=== PATIENT | female | born 1935 | race Caucasian/White ===

== ENCOUNTER 2025-05-09 20:34 | Inpatient (IN) | payer OTHER, MEDICAID ==
[~2025-05-09] VITALS: Ht 160 cm; Wt 52.4 kg
[~2025-05-09 20:34] MED LIST: AMLO1TAB23 PO; ARIP5TAB PO; DESV1TAB PO; GABA-1250 PO; HYDR-4798 PO; PANT40T PO
--- NOTE | 2025-05-09 20:59 | ED.PDOC ---
SOB-HPI HPI Comments HPI: This is 89 year old female BIBA presenting to the ED with chief complaint of SOB. EMS reports patient is coming from [facility] for SOB since yesterday. EMS relays that the patient was 75% on RA, however, when placed on non-rebreather mask she went up to 99% O2 saturation. EMS states patient was also given 500mL of IVF en route due to HR being about 123. Patient states she is also experiencing associated abdominal pain and back pain, but her SOB is much more improved with the O2. Patient denies any chest pain, fever, chills, cough, or syncope. Past Medical History: HTN Past Surgical History: Denies Social History: Denies smoking, ETOH, or drug use. Medications: Reviewed Allergies: NKDA SHALLENBERGER: HYPOXIC 70. TACHY, ON NRM NOW. FEELS BETTER. KIASER. HTN, COUGH HPI: Poor Historian. Patient feels better on the non-rebreather mask and states some improvement since EMS picked her up. REVIEW OF SYSTEMS: CONSTITUTIONAL: Denies acute: fever, diaphoresis, chills, HEAD: Denies acute: headache, photophobia Eyes: Denies acute: Double vision, vision loss, eye pain, eye discharge. EARS: Denies acute: tinnitus, hearing loss, ear discharge, ear pain, THROAT: Denies acute: sore throat, swelling, difficulty swallowing , pain with swallowing, change in voice. NECK: Denies acute: neck pain, neck swelling, stiff neck. HEART: Denies acute : chest pain, palpitations, LUNGS: Denies acute: wheezing, hemoptysis ABDOMEN: Denies acute: abdominal pain, Nausea, Vomiting, diarrhea, melena , hematemesis, hematochezia SKIN: Denies acute: rash, redness, lesions, itchiness. EXTREMITIES: Denies acute: calf pain, numbness, tingling, weakness, denies pain in extremity. Denies acute: Low back pain. Neuro: Denies acute: focal neurological deficit, motor or sensory focal neurological deficit, tremors, seizure like activity, confusion, dizziness, change in mental status, loss of bowel or bladder function, cauda equina like symptoms. : Denies acute: dysuria, hematuria, flank pain, increase in urinary frequency. PSYCH: Denies acute: hallucination, suicidal ideation, homicidal ideation. FEMALE: Denies acute: abnormal vaginal bleeding, foul odor, unusual discharge. PHYSICAL EXAM: General: ----moderate----acute distress, awake and alert. Head: normocephalic, atraumatic. No raccoon's eyes, no amin sign. Neck: supple, trachea is midline, no swelling. Throat: Normal phonation. Eyes:, no erythema, no purulent discharge, no proptosis, no icterus. Heart: regular tachycardic, no significant murmur appreciated. Lungs: Mild respiratory distress, Able to speak in full sentences. Patient is on a non-rebreather mask. No wheezing, no rhonchi, no crackles. No stridors Clear to auscultation bilaterally. Abdomen: non tender to palpation, non distended, soft, no guarding, no rebound, + bowel sounds. Neuro: Awake, Alert, oriented to name, self, situation, follows commands GCS=15. Speech is normal. Skin: no petechia, no purpura, no cyanosis, slightly-pale, not jaundice. Lower extremities: --trace bilateral - Pitting edema no deformity, no focal swelling, no calf TTP. Makes eye contact. moves all four extremities. Face: no apparent facial droop. ED COURSE: DISCLAIMER: This medical document was created using an electronic medical record system with voice recognition software and computerized dictation system. Although this document has been carefully reviewed, there might still be some phonetic and typographical errors. Occasional wrong-word or "sound-alike" substitutions may have occurred due to the inherent limitations of voice recognition software. These areas are purely typographical due to imperfections of the software programs and do not reflect any compromise in the patient's medical care. Please read the chart carefully and recognize, using context, where these substitutions have occurred. Chief Complaint: Shortness of Breath Time Seen by MD: 20:55 Reviewed notes: Medications, Allergies Information Source: Patient, Emergency Med Personnel Mode of Arrival: EMS Was a procedure done? Was a procedure done?: No Differential Dx Differential Diagnosis: Other (DDx include ACS, unstable angina, anxiety, PE, pneumothroax, neoplasm, cardiac ischemia, COPD, asthma, CHF, pleural effusion, tobacco abuse, pneumonia, hypoxia, hypercapnia, anemia., infection/sepsis., pulmonary edema. Asthma, Cardiac tamponade, infection.) X-Ray, Labs, Meds, VS Vital Signs Date Time Temp Pulse Resp B/P (MAP) Pulse Ox O2 Delivery O2 Flow Rate FiO2 05/09/25 22:05 20 97 Non-Rebreather 15 N/A 05/09/25 22:00 119 16 120/62 (81) 96 05/09/25 21:12 122 20 99 Non-Rebreather 15 N/A 05/09/25 21:12 98.2 122 21 112/60 (77) 99 98.2 05/09/25 20:48 99 Non-Rebreather 15 N/A 05/09/25 20:41 98.2 125 22 148/75 99 98.2 05/09/25 20:38 120 Lab Test 05/09/25 22:55 05/09/25 21:16 Range/Units Troponin I High Sensitivity 96 *H 85 *H </=34 ng/L White Blood Count 12.3 H 4.4-10.8 10^3/uL Red Blood Count 3.77 L 4.0-5.20 10^6/uL Hemoglobin 11.0 L 12.2-16.2 g/dL Hematocrit 33.8 L 36.0-46.0 % Mean Corpuscular Volume 89.5 80.0-100.0 fL Mean Corpuscular Hemoglobin 29.2 28.0-32.0 pg Mean Corpuscular Hemoglobin Concent 32.6 32.0-36.0 g/dL Red Cell Distribution Width 15.3 H 11.8-14.3 % Platelet Count 513 H 140-450 10^3/uL Mean Platelet Volume 6.7 L 6.9-10.8 fL Neutrophils (%) (Auto) 81.8 H 37.0-80.0 % Lymphocytes (%) (Auto) 11.6 10.0-50.0 % Monocytes (%) (Auto) 4.9 0.0-12.0 % Eosinophils (%) (Auto) 1.2 0.0-7.0 % Basophils (%) (Auto) 0.5 0.0-2.0 % Neutrophils # (Auto) 10.0 H 1.6-8.6 10 ^3/uL Lymphocytes # (Auto) 1.4 0.4-5.4 10 ^3/uL Monocytes # (Auto) 0.6 0-1.3 10 ^3/uL Eosinophils # (Auto) 0.1 0-0.8 10 ^3/uL Basophils # (Auto) 0.1 0-0.2 10 ^3/uL Nucleated Red Blood Cells 0.1 % D-Dimer, Quantitative 3.03 H 0.0-0.49 mg/L FEU Sodium Level 140 136-145 mmol/L Potassium Level 3.5 3.5-5.1 mmol/L Chloride Level 105 98-107 mmol/L Carbon Dioxide Level 22 20-31 mmol/L Anion Gap 13 5-15 Blood Urea Nitrogen 17 9-23 mg/dL Creatinine 0.86 0.550-1.02 mg/dL Glomerular Filtration Rate Calc 65 >90 mL/min BUN/Creatinine Ratio 19.8 10.0-20.0 Serum Glucose 101 74-106 mg/dL Lactic Acid Level 2.1 *H 0.4-2.0 mmol/L Calcium Level 8.6 L 8.7-10.4 mg/dL Magnesium Level 1.8 1.6-2.6 mg/dL Total Bilirubin 0.3 0.2-1.0 mg/dL Aspartate Amino Transferase (AST) 39 13-40 U/L Alanine Aminotransferase (ALT) 14 7-40 U/L Alkaline Phosphatase 168 H 46-116 U/L B-Type Natriuretic Peptide 358.52 0-100 pg/mL Total Protein 6.9 5.7-8.2 g/dL Albumin 3.7 3.2-4.8 g/dL Current Medications Medications (Trade) Dose Ordered Sig/Ely Route Start Time Stop Time Status Last Admin Albuterol (Ventolin Medneb) 2.5 mg ONCE ONCE NEB 05/09/25 21:00 05/09/25 21:01 DC 05/09/25 22:05 Ipratropium [place] (Atrovent Medneb) 1 mg ONCE ONCE NEB 05/09/25 21:00 05/09/25 21:01 DC 05/09/25 22:05 Ceftriaxone Sodium 50 ml @ 100 mls/hr ONCE ONCE IV 05/09/25 22:15 05/09/25 22:44 DC 12/8/25 22:19 Time of 1ST Reevaluation: 21:55 Reevaluation 1ST: Unchanged Time of 2ND Reevaluation: 22:15 (The case was discussed with the [facility] admitting team (HPI, physical exam, labs and diagnostic tests that were available at the time of disposition, ED course, treatment plan) on the phone. They authorized us to keep The patient in our facility for further evaluation and treatment. Dr. yeh---. Authorization number is--[id number] indicated that the patient has no history of CHF. History of chronic back pain interstitial lungs and bronchiectasis.) Patient Education/Counseling: Diagnosis, Treatment Family Education/Counseling: No Family Present Comments MDM: patient presented with the above HPI.--dyspnea/hypoxemia----workup was initiated. patient was found with the above mentioned diagnosis. the following medications were ordered: please refer to order lists of meds and tests obtained by myself Dr. Wilkins. Patient ED course and VS have been stabilized. Patient has been reassessed in the ED and remained in a stable condition. Pertinent incidental findings were discussed with the patient and/or family. Patient/family voices understanding and is agreeable with plan. Patient has been observed in the ED adequate length of time to insure improvement/stability. Escalation of care considered: Consideration of escalation to observation or admission [facility] was consulted. Patient was ADMITTED to the medicine team for further evaluation and treatment of their presentation. Patient was given antibiotics, DuoNeb treatment. Patient was found with elevated D-dimer. CTA angiogram of the chest is still pending report. All the reports of any imaging studies that were ordered by myself were reviewed by myself. Departure 1 Departure Time of Disposition: 22:14 Impression: Primary Impression: Hypoxemia Additional Impressions: Acute respiratory distress Elevated troponin Disposition: ADMITTED INPATIENT Admit to: Tele Condition: Guarded Discharged With: Self Critical Care Note Critical Care Time?: Yes (45 min-critical care time only) Critical care comment: Due to a high probability of clinically significant, life threatening deterioration, the patient required my highest level of preparedness to intervene emergently and I personally spent this critical care time directly and personally managing the patient. This critical care time included obtaining a history; examining the patient; pulse oximetry; ordering and review of studies; arranging urgent treatment with development of a management plan; evaluation of patient's response to treatment; frequent reassessment; and, discussions with other providers. This critical care time was performed to assess and manage the high probability of imminent, life-threatening deterioration that could result in multi-organ failure. It was exclusive of separately billable procedures and treating other patients and teaching time. Please see my other sections and the rest of the note for further information on patient assessment and treatment. I personally scribed for MARIA DEL ROSARIO WILKINS DO ([email or web address]) on 05/09/25 at 20:59. Electronically submitted by Jhonny Arevalo ([email or web address]). MARIA DEL ROSARIO WILKINS DO May 09, 2025 20:59
[2025-05-09 21:12] VITALS: PULSE 122; RESP 20; O2SAT 99
--- NOTE | 2025-05-09 21:51 | DVH ---
CHEST RADIOGRAPH Indication: SOB Technique: 1 view Comparison: None FINDINGS: Lines and Tubes: None. Lungs/Pleura: Diffuse interstitial opacities throughout both lungs. Mild consolidations in the right upper, left perihilar, and left basilar lungs. Small pleural effusions suspected. No pneumothorax. Cardiomediastinum: Heart size within normal limits for technique. Other: No acute osseous abnormality. IMPRESSION: 1. Bilateral mixed pulmonary opacities and suspected small pleural effusions suggestive of edema or infection.
[2025-05-09 22:01] LABS: Hematocrit 33.8 % (36.0-46.0); Hemoglobin 11.0 g/dL (12.2-16.2); Mean Corpuscular Hemoglobin 29.2 pg (28.0-32.0); Mean Corpuscular Volume 89.5 fL (80.0-100.0); Nucleated Red Blood Cells % 0.1 %
[2025-05-09] MEDS: IPRATROPIUM BROM 0.5 MG/2.5ML INH SOL NEB ONE (22:05)
[2025-05-09] MEDS: ALBUTEROL SULF 2.5 MG/0.5ML(0.5%) NEB SOLN NEB ONE (22:05)
[2025-05-09 22:17] LABS: Alanine Aminotransferase 14 U/L (7-40); Anion Gap 13 (5-15); Carbon Dioxide 22 mmol/L (20-31); Chloride 105 mmol/L (98-107); Glucose 101 mg/dL (74-106); Magnesium 1.8 mg/dL (1.6-2.6); Sodium 140 mmol/L (136-145)
[2025-05-09 22:18] LABS: Albumin 3.7 g/dL (3.2-4.8); BUN/Creatinine Ratio 19.8 (10.0-20.0); Bilirubin, Total 0.3 mg/dL (0.2-1.0); Blood Urea Nitrogen 17 mg/dL (9-23); Total Protein 6.9 g/dL (5.7-8.2)
[2025-05-09 22:24] LABS: Alkaline Phosphatase 168 U/L (46-116); Calcium 8.6 mg/dL (8.7-10.4); Potassium 3.5 mmol/L (3.5-5.1)
[2025-05-09 22:33] LABS: Lactic Acid w/Reflex 2.1 mmol/L (0.4-2.0)
[2025-05-09] MEDS ORDERED: NITROGLYCERIN 0.4 MG SL TAB SL PRN (23:00)
--- NOTE | 2025-05-09 23:08 | DVHHPRES ---
History of Present Illness Resident Creating Document: DINA GREENBERG RESIDENT History of Present Illness This is 89-year-old female with past medical history of hypertension, chronic back pain, depression, urinary incontinence, recurrent UTI presented to the ED with a chief complaint of progressive shortness of breath for last 2 days prior to this admission. According to the family the patient was having shortness of breath for last 2 days getting worse and today she was desaturating at 60% in home that prompted this visit. In the ED the patient was on non-rebreather 15 L that improved the oxygen saturation to 99%. She denies fever, chills, cough with the phlegm, recent positive sick contact, recent traveling, dysuria, hematuria or any altered bowel habit. Patient is unstable for transfer to [facility] Past Medical History chronic back pain, depression, urinary incontinence, recurrent UTI Past Surgical History Stomach surgery 6 years ago Family History Noncontributory Past Social History Lives with family Nonsmoker, nonalcoholic and never tried any drugs Review of Systems Constitutional: No: Fever, Chills, Sweats, Weakness, Malaise, Other Eyes: No: Pain, Vision change, Conjunctivae inflammation, Eyelid inflammation, Other, Redness ENT: No: Ear pain, Ear discharge, Nose pain, Nose discharge, Nose congestion, Mouth pain, Mouth swelling, Throat pain, Throat swelling, Other Respiratory: Shortness of breath; No: Cough, Dry, SOB with excertion, Wheezing, Hemoptysis, Pleuritic Pain, Sputum, Wheezing, Other Cardiovascular: No: Chest Pain, Palpitations, Orthopnea, Paroxysmal Noc. Dyspnea, Edema, Lt Headedness, Other Gastrointestinal: No: Nausea, Vomiting, Abdominal Pain, Diarrhea, Constipation, Melena, Hematochezia, Other Musculoskeletal: back pain; No: other, neck pain, shoulder pain, arm pain, hand pain, leg pain, foot pain Skin: No: Rash, Lesions, Jaundice, Bruising, Other Neurological: No: Weakness, Numbness, Incoordination, Change in speech, Confusion, Seizures, Other Allergies: Coded Allergies: NO KNOWN ALLERGIES (Unverified , 05/09/25) Medications Current Medications Medications Dose Ordered Sig/Ely Route Start Time Stop Time Status Last Admin Dose Admin Nitroglycerin 0.4 mg Q5MINP PRN SL 05/09/25 23:00 Morphine Sulfate 2 mg Q30M PRN IV 05/09/25 23:00 Exam Vital Signs Vital Signs Date Time Temp Pulse Resp B/P (MAP) Pulse Ox O2 Delivery O2 Flow Rate FiO2 05/09/25 22:05 20 97 Non-Rebreather 15 N/A 05/09/25 22:00 119 120/62 (81) 05/09/25 21:12 98.2 98.2 Exam Physical examination: General Appearance: Alert, Oriented X3, Cooperative, on non breather 15L HEENT: Atraumatic, PERRLA, EOMI, Mucous membrane moist/pink Respiratory: Bilateral rales Cardiovascular: Regular rate, Normal S1, Normal S2, No murmurs, no chest wall tenderness Abdominal: Normal bowel sounds, Soft, No tenderness, No hepatospenomegaly, No masses Extremities: No clubbing, No cyanosis, No edema, Normal pulses, No tenderness/swelling Skin: No rashes, No breakdown, No significant lesion Neuro: Normal speech, Strength at 5/5 X4 ext, Normal tone, Sensation intact, Cranial nerves 3-12 NL, Reflexes 2+ Psych/Mental Status: Mental status NL, Mood NL Labs/Xrays Labs Test 05/09/25 22:55 05/09/25 21:16 Range/Units White Blood Count 12.3 H 4.4-10.8 10^3/uL Red Blood Count 3.77 L 4.0-5.20 10^6/uL Hemoglobin 11.0 L 12.2-16.2 g/dL Hematocrit 33.8 L 36.0-46.0 % Mean Corpuscular Volume 89.5 80.0-100.0 fL Mean Corpuscular Hemoglobin 29.2 28.0-32.0 pg Mean Corpuscular Hemoglobin Concent 32.6 32.0-36.0 g/dL Red Cell Distribution Width 15.3 H 11.8-14.3 % Platelet Count 513 H 140-450 10^3/uL Mean Platelet Volume 6.7 L 6.9-10.8 fL Neutrophils (%) (Auto) 81.8 H 37.0-80.0 % Lymphocytes (%) (Auto) 11.6 10.0-50.0 % Monocytes (%) (Auto) 4.9 0.0-12.0 % Eosinophils (%) (Auto) 1.2 0.0-7.0 % Basophils (%) (Auto) 0.5 0.0-2.0 % Neutrophils # (Auto) 10.0 H 1.6-8.6 10 ^3/uL Lymphocytes # (Auto) 1.4 0.4-5.4 10 ^3/uL Monocytes # (Auto) 0.6 0-1.3 10 ^3/uL Eosinophils # (Auto) 0.1 0-0.8 10 ^3/uL Basophils # (Auto) 0.1 0-0.2 10 ^3/uL Nucleated Red Blood Cells 0.1 % D-Dimer, Quantitative 3.03 H 0.0-0.49 mg/L FEU Sodium Level 140 136-145 mmol/L Potassium Level 3.5 3.5-5.1 mmol/L Chloride Level 105 98-107 mmol/L Carbon Dioxide Level 22 20-31 mmol/L Anion Gap 13 5-15 Blood Urea Nitrogen 17 9-23 mg/dL Creatinine 0.86 0.550-1.02 mg/dL Glomerular Filtration Rate Calc 65 >90 mL/min BUN/Creatinine Ratio 19.8 10.0-20.0 Serum Glucose 101 74-106 mg/dL Lactic Acid Level 2.1 *H 0.4-2.0 mmol/L Calcium Level 8.6 L 8.7-10.4 mg/dL Magnesium Level 1.8 1.6-2.6 mg/dL Total Bilirubin 0.3 0.2-1.0 mg/dL Aspartate Amino Transferase (AST) 39 13-40 U/L Alanine Aminotransferase (ALT) 14 7-40 U/L Alkaline Phosphatase 168 H 46-116 U/L B-Type Natriuretic Peptide 358.52 0-100 pg/mL Total Protein 6.9 5.7-8.2 g/dL Albumin 3.7 3.2-4.8 g/dL SEPSIS Sepsis Screen Date sepsis recognized/suspect: May 09, 2025 Time Sepsis recognized/suspect: 2214 Recent Procedure: No On Antibiotic Therapy: No Respiratory Rate >20: No Heart Rate >90: Yes Temp<36 C (96.8 F) or >38.3 C: No SBP <90 or MAP <65 mmHG: No New Acute Mental Status Change: No Is the patient on CPAP, BIPAP,: No Physician Orders Electrocardigram (05/09/25 20:47) Electrocardigram (05/09/25 21:47) Stitcher Feeder (05/09/25 ) Chest Portable (05/09/25 20:57) Troponin-I Hs (05/09/25 21:57) Troponin-I Hs (05/09/25 23:57) Admit (05/09/25 22:58) Nitroglycerin Sublingual (Ntrostat Subli (05/09/25 23:00) Morphine Sulfate Injection (05/09/25 23:00) Oxygen By Nasal Cannula (05/09/25 22:58) Stat Ekg For Chest Pain (05/09/25 22:58) Notify Of Changes From Base (05/09/25 22:58) Outdoor Recreation Specialist For 24 Hours (05/09/25 22:58) Emergency Dysrhythmia Protocol (05/09/25 22:58) Rhythm Strips Once Every Shift (05/09/25 22:58) Code Status (05/09/25 22:58) Vital Signs Date Time Temp Pulse Resp B/P (MAP) Pulse Ox O2 Delivery O2 Flow Rate FiO2 05/09/25 22:05 20 97 Non-Rebreather 15 N/A 05/09/25 22:00 119 16 120/62 (81) 96 05/09/25 21:12 122 20 99 Non-Rebreather 15 N/A 05/09/25 21:12 98.2 122 21 112/60 (77) 99 98.2 05/09/25 20:48 99 Non-Rebreather 15 N/A 05/09/25 20:41 98.2 125 22 148/75 99 98.2 05/09/25 20:38 120 Laboratory Tests Test 05/09/25 21:16 Lactic Acid Level 2.1 mmol/L (0.4-2.0) *H White Blood Count 12.3 10^3/uL (4.4-10.8) H Medications Medications Dose Ordered Sig/Ely Route Start Time Stop Time Status Last Admin Dose Admin Albuterol 2.5 mg ONCE ONCE NEB 05/09/25 21:00 05/09/25 21:01 DC 05/09/25 22:05 2.5 MG Ceftriaxone Sodium 50 ml @ 100 mls/hr ONCE ONCE IV 05/09/25 22:15 05/09/25 22:44 DC 05/09/25 22:19 100 MLS/HR Ipratropium [place] 1 mg ONCE ONCE NEB 05/09/25 21:00 05/09/25 21:01 DC 05/09/25 22:05 1 MG Assessment/Plan Assessment/Plan Assessment and plan: # Acute hypoxic respiratory failure # Possible multifocal pneumonia # Sepsis due to above # Rule out pulmonary embolism # Sepsis due to above # Possible acute on chronic systolic/diastolic heart failure # NSTEMI type 2 due to above - Initially patient was desaturating, tachypneic and tachycardic - D-dimer is high - BNP is elevated - Chest x-ray showed Bilateral mixed pulmonary opacities and suspected small pleural effusions suggestive of edema or infection - Troponin trends are 85>96>95 - pending blood culture, urine bacterial culture, COVID, flu and MRSA - CT angio showed multifocal predominantly ground-glass bilateral pulmonary infiltrate with diffuse septal thickening. - IV vancomycin as per pharmacy and IV cefepime 1 g b.i.d. - pending echo # chronic depression/anxiety - continue home medications # DVT prophylaxis - Lovenox 40 mg SC daily. Goal of care and code status discussed with the patient for more than 23 minutes full code Plan discussed with Dr. Frances Plan discussed with: Patient, Son, Other (RN) My Orders Orders - DINA GREENBERG RESIDENT Procedure Category Date Status Time Admit ADMIT 05/09/25 Transmitted 22:58 Nitroglycerin PHA 05/09/25 In Process Sublingual (Ntrostat 23:00 Morphine Sulfate PHA 05/09/25 In Process Injection 23:00 Oxygen By Nasal RT 05/09/25 Transmitted Cannula 22:58 Stat Ekg For Chest CARLOS 05/09/25 In Process Pain 22:58 Notify Md Of Changes CARLOS 05/09/25 In Process From Base 22:58 Outdoor Recreation Specialist For CARLOS 05/09/25 In Process 24 Hours 22:58 Emergency Dysrhythmia CARLOS 05/09/25 In Process Protocol 22:58 Rhythm Strips Once [facility] 05/09/25 In Process Every Shift 22:58 Code Status CODE 05/09/25 Transmitted 22:58 Visit Coding STANDARD RES Billing Provider: RISHI FRANCES MD Date of Service if different f: May 09, 2025 Common Visit Codes: 04688-BSQXWCA INP/OBS CARE (HIGH) Secondary Visit Codes: 40332-LIBEQTNC CARE PLAN 30 MINUTES DINA GREENBERG RESIDENT May 09, 2025 23:08
[2025-05-09] MEDS: DOXYCYCLINE 100 MG TAB/CAP PO ONE (23:31)
[2025-05-09 23:35] LABS: Base Excess -4.1 mmol/L (-2.0-3.0)
[2025-05-10] MEDS: SODIUM CHLORIDE 0.9% 1,000 ML IV SCH (00:01)
[2025-05-10 00:07] VITALS: BP 120/62; PULSE 120; RESP 20; TEMP 98.2; O2SAT 97
--- NOTE | 2025-05-10 00:09 | ECG ---
[facility] Test Date: 2025-05-09 Test Time: 20:38:14 Pat Name: CHELA HASKINS Department: Room: [address] [place] [address] Gender: F Breeder Hen Service Technician: patricia : 1935 Requested By: MARIA DEL ROSARIO WILKINS Order Number: [id number] Reading MD: Joe Valentin Measurements Intervals [place] Rate: 120 P: 60 CA: 126 QRS: -57 QRSD: 92 T: 93 QT: 319 QTc: 451 Interpretive Statements Sinus tachycardia Atrial premature complex Left anterior fascicular block Anterior infarct, old Nonspecific T abnormalities, lateral leads Electronically Signed On 05-12-2025 19:24:31 PST by Joe Valentin Please click the below link to view image of tracing.
[2025-05-10 02:02] LABS: COVID19 ANTIGEN SOFIA FIA NEGATIVE (NEGATIVE)
[2025-05-10] MEDS: IOHEXOL 350 MG/ML 100ML IJ ONE (04:24)
--- NOTE | 2025-05-10 04:41 | DVH ---
CTA Chest with intravenous contrast INDICATION: Rule out PE COMPARISON: XY CHEST PORTABLE on DOS: 05/09/25 TECHNIQUE: Multidetector spiral CTA of the chest was performed of the chest with intravenous contrast. PULMONARY ANGIOGRAPHY PROTOCOL was utilized using a bolus- tracking technique centered on the main pulmonary artery. Axial, coronal and sagittal multiplanar and MIP reformats were performed. Radiation Dose : 1. Chest: CTDI volume is 5.92 mGy. Dose-length product is 521.34 mGy*cm The dose indicators for CT are the volume Computed Tomography (CT) Dose Index (CTDIvol) and the Dose Length Product (DLP), and are measured in units of mGy and mGy-cm, respectively. These indicators are not patient dose, but values generated from the CT scanner acquisition factors. The report includes radiation exposure data for exposures received during this examination. Findings: Pulmonary artery: No pulmonary embolism. Lower neck: Normal thyroid. Lungs: Moderate left and small right pleural effusions with adjacent atelectasis. Multifocal predominantly ground-glass bilateral pulmonary infiltrate with diffuse septal thickening. No evidence of pneumothorax. Heart/Vascular Structures: Normal heart size. No pericardial effusion. Atherosclerotic vascular calcifications. Lymph Nodes: No adenopathy Musculoskeletal: No acute osseous abnormality. Soft tissues: Normal. Upper abdomen: Limited portions of the upper abdomen are unremarkable. IMPRESSION: 1. No pulmonary embolism. 2. Moderate left and small right pleural effusions with adjacent atelectasis. 3. Multifocal predominantly ground-glass bilateral pulmonary infiltrate with diffuse septal thickening.
[2025-05-10] MEDS ORDERED: VANCOMYCIN PER PHARMACY 0 MG IV SCH (05:30)
[2025-05-10] MEDS ORDERED: CEFEPIME 1GM/50ML 50 ML IV ONE (05:30)
[2025-05-10] MEDS: MAGNESIUM SULFATE 1GM/100ML 100 ML IV ONE (05:53)
[2025-05-10] MEDS: VANCOMYCIN 1GM/250ML IV ONE (05:55)
[2025-05-10 06:49] VITALS: O2SAT 93
[2025-05-10] MEDS: CEFEPIME 1GM/50ML 50 ML IV SCH (07:19)
[2025-05-10 08:57] LABS: Hematocrit 33.8 % (36.0-46.0); Hemoglobin 10.8 g/dL (12.2-16.2); Mean Corpuscular Hemoglobin 28.9 pg (28.0-32.0); Mean Corpuscular Volume 90.4 fL (80.0-100.0); Nucleated Red Blood Cells % 0.1 %
[2025-05-10 09:01] LABS: Chloride 105 mmol/L (98-107); Sodium 140 mmol/L (136-145)
[2025-05-10 09:02] LABS: Anion Gap 13 (5-15); Carbon Dioxide 22 mmol/L (20-31)
[2025-05-10 09:03] LABS: Calcium 8.4 mg/dL (8.7-10.4); Potassium 3.2 mmol/L (3.5-5.1)
[2025-05-10 09:08] LABS: BUN/Creatinine Ratio 19.7 (10.0-20.0); Blood Urea Nitrogen 12 mg/dL (9-23)
[2025-05-10 09:24] LABS: Glucose 109 mg/dL (74-106)
[2025-05-10] MEDS ORDERED: DOXYCYCLINE 100 MG TAB/CAP PO SCH (10:00)
[2025-05-10] MEDS: ENOXAPARIN SOD 40 MG/0.4 ML SYRINGE SC SCH (10:25)
[2025-05-10] MEDS: ALBUTEROL SULF 2.5 MG/0.5ML(0.5%) NEB SOLN NEB PRN (13:05)
[2025-05-10 13:06] VITALS: PULSE 136; RESP 18; O2SAT 90
[2025-05-10] MEDS: IPRATROPIUM BROM 0.5 MG/2.5ML INH SOL NEB PRN (13:06)
[2025-05-10 13:16] VITALS: PULSE 120; RESP 18; O2SAT 95
[2025-05-10] MEDS: MORPHINE SULFATE INJ 2 MG/ml SYRG IV PRN (13:30)
[2025-05-10] MEDS ORDERED: FUROSEMIDE 20 MG/2 ML VIAL IV ONE (16:45)
--- NOTE | 2025-05-10 16:54 | DVHINCON2 ---
Date Seen: May 10, 2025 Referring Physician MD Chaya Reason for Consultation CHF History of Present Illness This is a pleasant 89-year-old female who presented to the emergency room via EMS with a chief complaint of shortness of breath. The patient complains of progressive shortness of breath which got worse two days ago and prompted a visit to a local urgent care clinic. Per records, the patient was found with O2 saturations in the 70s% in room air which prompted to call 911. She was provided with supplemental oxygenation via a non-rebreather mask with improved oxygen saturations. EN route to the hospital she was medicated with IVF x500s mL and found to be tachycardic with a heart rate in the 120s bpm. Upon arrival to the emergency room she underwent a 12 lead electrocardiogram revealing a sinus tachycardic rhythm with premature atrial contractions. At time of assessment the patient complaint of SOB, DE LA PAZ, and PND. Significant medical history includes hypertension, chronic lower back pain, recurrent UTIs, and depression. Past Medical History Past medical history reviewed. No other significant than mentioned above. Past Surgical History GI surgery, 2019 Family History Family history reviewed. Social History Denies the use of illicit drugs, alcohol, or tobacco use. Allergies: Coded Allergies: NO KNOWN ALLERGIES (Unverified , 05/09/25) Home Meds Home medications reviewed. Current Medications Current Medications Medications (Trade) Dose Ordered Sig/Ely Route PRN Reason Start Time Stop Time Status Last Admin Nitroglycerin (Ntrostat Sublingual) 0.4 mg Q5MINP PRN SL FOR CHEST PAIN 05/09/25 23:00 Morphine Sulfate 2 mg Q30M PRN IV FOR CHEST PAIN 05/09/25 23:00 05/10/25 13:30 Ceftriaxone Sodium 50 ml @ 100 mls/hr DAILY IV 05/10/25 10:00 05/10/25 05:30 DC Doxycycline Monohydrate (Vibramycin Tablet) 100 mg BID PO 05/10/25 10:00 05/10/25 05:30 DC Albuterol (Ventolin Medneb) 2.5 mg Q4HPRN PRN NEB SHORTNESS OF BREATH 05/09/25 23:00 05/10/25 16:43 DC 05/10/25 13:05 Ipratropium [place] (Atrovent Medneb) 0.5 mg Q4HPRN PRN NEB SHORTNESS OF BREATH 05/09/25 23:00 05/10/25 13:06 Sodium Chloride 1,000 ml @ 60 mls/hr [id number] IV 05/09/25 23:45 05/10/25 16:43 DC 05/10/25 00:01 Enoxaparin Sodium (Lovenox) 40 mg DAILY SC 05/10/25 10:00 05/10/25 10:25 Venlafaxine HCl (Effexor) 100 mg QPM PO 05/10/25 18:00 05/10/25 16:43 DC Vancomycin HCl 0 ml @ 0 mls/hr PER PHARMACY IV 05/10/25 05:30 05/10/25 16:43 DC Cefepime HCl 50 ml @ 12.5 mls/hr Q12H IV 05/10/25 05:45 05/10/25 07:19 Vancomycin HCl 100 ml @ 100 mls/hr DAILY@0600 IV 05/11/25 06:00 05/10/25 16:43 DC Acetaminophen/ Hydrocodone Bitart ([place] 5/325MG Tab) 1 tab Q6HPRN PRN PO MODERATE PAIN (4-6 PAIN SCALE) 05/10/25 15:45 Furosemide (Lasix Injection) 20 mg BIDD IV 05/10/25 18:00 UNV Review of Systems Constitutional: No symptom reported Ears, Nose, & Throat: No symptom reported Eyes: No symptom reported Neurological: No symptoms reported Pulmonary/Respiratory: SOB, DE LA PAZ, PND Cardiovascular: No symptom reported Gastrointestinal: No symptom reported Genitourinary: No symptom reported Musculoskeletal: No symptom reported Skin: No symptom reported Psychiatric: No symptom reported Endocrine: No symptom reported Hemotologic/Lymphatic: No symptom reported Vital Signs Vital Signs Date Time Temp Pulse Resp B/P (MAP) Pulse Ox O2 Delivery O2 Flow Rate FiO2 05/10/25 16:00 138 05/10/25 13:30 30 153/86 05/10/25 13:16 95 05/10/25 13:06 Oxymizer 8.0 05/10/25 13:06 52 52 05/10/25 00:07 98.2 98.2 Physical Exam General Appearance: Cooperative. Well developed. Thin. Moderate acute respiratory distress Head Exam: Normal inspection Neck Exam: Normal inspection. Non-tender. Normal alignment Pulmonary/Respiratory: Chest non-tender. Coarse bilateral breath sounds L>R. O2 via Oxymizer at 8 LPM. Tachypneic Cardiovascular/Chest: Regular rate and rhythm. S1, S2. Sinus tachycardia in the 140s bpm. No murmurs. No JVD. Peripheral Pulses: 2+ Radial (R). 2+ Radial (L). 2+ Pedal (R). 2+ Pedal (L) Abdominal Exam: Normal bowel sounds Ankle Exam: Negative ankle edema Lower extremities: Negative lower extremity edema Neuro/Mental Status: A&O x4. Coherent Thoughts/Psych: Normal thought pattern. Appropriate mood and affect. Good judgement and insight Appearance: Moderate acute respiratory distress Skin Exam: Normal inspection. Normal color. Warm. Dry Labs/Diagnostic Data Labs Test 05/10/25 08:40 05/10/25 01:00 05/10/25 00:00 05/09/25 23:57 Range/Units White Blood Count 11.6 H 4.4-10.8 10^3/uL Red Blood Count 3.74 L 4.0-5.20 10^6/uL Hemoglobin 10.8 L 12.2-16.2 g/dL Hematocrit 33.8 L 36.0-46.0 % Mean Corpuscular Volume 90.4 80.0-100.0 fL Mean Corpuscular Hemoglobin 28.9 28.0-32.0 pg Mean Corpuscular Hemoglobin Concent 32.0 32.0-36.0 g/dL Red Cell Distribution Width 15.2 H 11.8-14.3 % Platelet Count 432 140-450 10^3/uL Mean Platelet Volume 6.5 L 6.9-10.8 fL Neutrophils (%) (Auto) 83.4 H 37.0-80.0 % Lymphocytes (%) (Auto) 9.3 L 10.0-50.0 % Monocytes (%) (Auto) 3.8 0.0-12.0 % Eosinophils (%) (Auto) 3.1 0.0-7.0 % Basophils (%) (Auto) 0.4 0.0-2.0 % Neutrophils # (Auto) 9.7 H 1.6-8.6 10 ^3/uL Lymphocytes # (Auto) 1.1 0.4-5.4 10 ^3/uL Monocytes # (Auto) 0.4 0-1.3 10 ^3/uL Eosinophils # (Auto) 0.4 0-0.8 10 ^3/uL Basophils # (Auto) 0 0-0.2 10 ^3/uL Nucleated Red Blood Cells 0.1 % Sodium Level 140 136-145 mmol/L Potassium Level 3.2 L 3.5-5.1 mmol/L Chloride Level 105 98-107 mmol/L Carbon Dioxide Level 22 20-31 mmol/L Anion Gap 13 5-15 Blood Urea Nitrogen 12 9-23 mg/dL Creatinine 0.61 0.550-1.02 mg/dL Glomerular Filtration Rate Calc 86 >90 mL/min BUN/Creatinine Ratio 19.7 10.0-20.0 Serum Glucose 109 H 74-106 mg/dL Calcium Level 8.4 L 8.7-10.4 mg/dL Influenza Type A Antigen Negative Negative Influenza Type B Antigen Negative Negative SARS-CoV-2 Antigen (Rapid) Negative NEGATIVE Troponin I High Sensitivity 95 *H </=34 ng/L Lactic Acid Level 1.5 0.4-2.0 mmol/L Test 05/09/25 23:20 05/09/25 21:16 Range/Units Blood Gas Specimen Type Arterial Blood Gas Sample Site Left radial Blood Gas Patient Temperature 37.0 Arterial Blood Date Drawn [id number] Arterial Blood pH 7.378 7.350-7.450 Arterial Blood Partial Pressure CO2 35.5 32.0-45.0 mmHg Arterial Blood Partial Pressure O2 239.5 H 83.0-108.0 mmHg Arterial Blood HCO3 20.4 L 21.0-28.0 mmol/L Arterial Blood Oxygen Saturation 99.7 H 94.0-98.0 % Arterial Blood Base Excess -4.1 L -2.0-3.0 mmol/L Arterial Blood Oxyhemoglobin 97.5 94.0-98.0 % Arterial Blood Carboxyhemoglobin 1.9 H 0.5-1.5 % Arterial Blood Methemoglobin 0.3 0.0-1.5 % Arterial Blood Deoxyhemoglobin 0.3 0.0-5.0 % Ancelmo Test Yes Blood Gas Total Hemoglobin 11.50 L 12.0-16.0 g/dL Blood Gas Modality Mask - nrb FiO2 % 100.0 D-Dimer, Quantitative 3.03 H 0.0-0.49 mg/L FEU Magnesium Level 1.8 1.6-2.6 mg/dL Total Bilirubin 0.3 0.2-1.0 mg/dL Aspartate Amino Transferase (AST) 39 13-40 U/L Alanine Aminotransferase (ALT) 14 7-40 U/L Alkaline Phosphatase 168 H 46-116 U/L B-Type Natriuretic Peptide 358.52 0-100 pg/mL Total Protein 6.9 5.7-8.2 g/dL Albumin 3.7 3.2-4.8 g/dL Assessment Sepsis with pneumonia, ?UTI Acute hypoxic respiratory failure secondary to above NSTEMI, likely type 2 secondary to above Multifocal atrial tachycardia Rule out structural heart disease Hypertension Chronic lower back pain Plan/Recommendation (Dr. Mix) We will continue further cardiac evaluation with a transthoracic echocardiogram to rule out structural heart disease. In the meantime, initiate rate control with Cardizem IV and replenish electrolytes as necessary, potassium over 4 and magnesium over 2. Continue ABX therapy per primary care team. Monitor ECG changes closely and notify accordingly. Further orders per clinical course. Thank you for allowing us to participate in this patient's care. Please call if you have any questions or concerns. This medical document was created using an electronic medical record system with voice recognition software and computerized dictation system. Although this document has been carefully reviewed, there might still be some phonetic and typographical errors. Occasional wrong-word or ``sound-alike substitutions may have occurred due to the inherent limitations of voice recognition software. These areas are purely typographical due to imperfections of the software programs and do not reflect any compromise in the patient's medical care. Please read the chart carefully and recognize, using context, where these substitutions have occurred. Plan discussed with: Patient, Other NYHA Physical activity limitations: NA Date of Service: May 10, 2025 Billing Provider: VALERIA MG Cardiology Common Codes: [id number] INP/OBS CARE (High) VALERIA MG May 10, 2025 16:54
[2025-05-10] MEDS: POTASSIUM EFFERVESENT TAB 25 MEQ PO ONE ×3 (17:00→19:15)
--- NOTE | 2025-05-10 17:06 | DVHPN2 ---
Progress Note Date Seen: May 10, 2025 Medical Necessity Reason Pt with a Central, PICC or Fol: Yes The following are medically ne: Gage Catheter Reason for gage catheter: Strict I&O Subjective Patient reports: No new complaints Review of Systems: HEENT:Normal, CVS:Normal, RESPIRATORY:Normal, GI:Normal, :Normal, MSK:Normal, NEURO:Normal Objective vital signs Vital Sign Date Time Temp Pulse Resp B/P (MAP) Pulse Ox O2 Delivery O2 Flow Rate FiO2 05/10/25 16:00 138 05/10/25 13:30 30 153/86 05/10/25 13:16 95 05/10/25 13:06 Oxymizer 8.0 05/10/25 13:06 52 52 05/10/25 00:07 98.2 98.2 Total Intake and Output 05/09/25 05/09/25 05/10/25 15:00 23:00 07:00 Intake Total 50 ml 710 ml Balance 50 ml 710 ml medications Current Medications Medications Dose Ordered Sig/Ely Route Start Time Stop Time Status Last Admin Dose Admin Nitroglycerin 0.4 mg Q5MINP PRN SL 05/09/25 23:00 Morphine Sulfate 2 mg Q30M PRN IV 05/09/25 23:00 05/10/25 13:30 2 MG Ipratropium [place] 0.5 mg Q4HPRN PRN NEB 05/09/25 23:00 05/10/25 13:06 0.5 MG Enoxaparin Sodium 40 mg DAILY SC 05/10/25 10:00 05/10/25 10:25 40 MG Cefepime HCl 50 ml @ 12.5 mls/hr Q12H IV 05/10/25 05:45 05/10/25 07:19 12.5 MLS/HR Acetaminophen/ Hydrocodone Bitart 1 tab Q6HPRN PRN PO 05/10/25 15:45 Furosemide 20 mg BIDD IV 05/10/25 18:00 Examination: GENERAL:Normal, HEENT:Normal, NECK:Normal, LUNGS:Normal, LUNGS:Abnormal (on oxygen, rales), CVS:Normal, CVS:Abnormal (tachycardia), ABDOMEN:Normal, MSK:Normal, SKIN:Normal, NEURO:Normal, :Normal laboratory and microbiology Laboratory Tests 05/10/25 08:40 Test 05/10/25 08:40 Range/Units Serum Glucose 109 H 74-106 mg/dL Problem List/Assessment/Plan Problem List/Assessment/Plan #1 acute resp failure: cont oxygen #2 acute on chronic systolic/diastolic heart failure: lasix iv, cardio eval #3 htn #4 chronic back pain #5 nstemi #6 ?pneumonia/sepsis: gram positive/neg: iv antibiotics #7 ? MAT transfer to [facility] Plan discussed with: Patient My Orders My Orders Orders - AARON CONNELL MD Procedure Category Date Status Time Hydrocodone-Acet PHA 05/10/25 In Process 5/325mg Tab ([place] 15:45 * Cardiology Consult CONS 05/10/25 Transmitted 16:39 Furosemide Injection PHA 05/10/25 In Process (Lasix Injection) 18:00 Insert Gage Catheter CARLOS 05/10/25 In Process 16:40 Transfer Orders XFER 05/10/25 Transmitted 16:40 Potassium Effervesent PHA 05/10/25 Verified Tab ([place]-Con/Ef) 16:45 Urinalysis LAB 05/10/25 Uncollected 16:43 Complete Blood Count LAB 05/11/25 Verified 06:00 Comprehensive LAB 05/11/25 Verified Metabolic Panel 06:00 Chest Portable XY 05/11/25 Verified 06:00 Thyroid Stimulating LAB 05/11/25 Verified Hormone 05:00 Critical Care Time (mins): 39 (critical care time excluding procedures is 39 mins) Date of Service: May 10, 2025 Billing Provider: AARON CONNELL MD Common Visit Codes: [id number] CARE 30-74 MIN AARON CONNELL MD May 10, 2025 17:06
[2025-05-10] MEDS: dilTIAZem 25 MG/5 ML VIAL IV ONE (17:21)
[2025-05-10] MEDS ORDERED: VENLAFAXINE HCL 25MG TABLET PO SCH (18:00)
[2025-05-10] MEDS: FUROSEMIDE 20 MG/2 ML VIAL IV SCH (18:31)
[2025-05-10] MEDS: CARVEDILOL 3.125 MG TAB PO ONE (18:31)
[2025-05-10] MEDS: HYDROcodone-ACET 5/325MG TAB PO PRN (18:32)
[2025-05-10 19:39] LABS: Base Excess -6.0 mmol/L (-2.0-3.0)
[2025-05-10 20:00] VITALS: PULSE 138; RESP 30; O2SAT 95
[2025-05-10 20:06] VITALS: PULSE 132; RESP 28; O2SAT 98
[2025-05-10] MEDS: AMIODARONE BOLUS KIT 100 ML IV ONE (21:00)
--- NOTE | 2025-05-10 21:05 | DVHINCON2 ---
Date Seen: May 10, 2025 Referring Physician MD Chaya Reason for Consultation CHF History of Present Illness This is a pleasant 89-year-old female with a past medical history of hypertension, chronic lower back pain, recurrent UTIs, and depression who presented to the emergency room via EMS with a chief complaint of shortness of breath. The patient complains of progressive shortness of breath which got worse two days ago and prompted a visit to a local urgent care clinic. Per records, the patient was found with O2 saturations in the 70s% in room air which prompted to call 911. She was provided with supplemental oxygenation via a non-rebreather mask with improved oxygen saturations. EN route to the hospital she was medicated with IVF x500s mL and found to be tachycardic with a heart rate in the 120s bpm. Upon arrival to the emergency room she underwent a 12 lead electrocardiogram revealing a sinus tachycardic rhythm with premature atrial contractions. At time of assessment the patient complaint of SOB, DE LA PAZ, and PND. WBC 11.6, K 3.2, CA 8.4, TROP 96 > 95. Patient was admitted to the hospital. I am asked to consult on this patient. Allergies: Coded Allergies: NO KNOWN ALLERGIES (Unverified , 05/09/25) Current Medications Current Medications Medications (Trade) Dose Ordered Sig/Ely Route PRN Reason Start Time Stop Time Status Last Admin Nitroglycerin (Ntrostat Sublingual) 0.4 mg Q5MINP PRN SL FOR CHEST PAIN 05/09/25 23:00 Morphine Sulfate 2 mg Q30M PRN IV FOR CHEST PAIN 05/09/25 23:00 05/10/25 13:30 Ceftriaxone Sodium 50 ml @ 100 mls/hr DAILY IV 05/10/25 10:00 05/10/25 05:30 DC Doxycycline Monohydrate (Vibramycin Tablet) 100 mg BID PO 05/10/25 10:00 05/10/25 05:30 DC Albuterol (Ventolin Medneb) 2.5 mg Q4HPRN PRN NEB SHORTNESS OF BREATH 05/09/25 23:00 05/10/25 16:43 DC 05/10/25 13:05 Ipratropium [place] (Atrovent Medneb) 0.5 mg Q4HPRN PRN NEB SHORTNESS OF BREATH 05/09/25 23:00 05/10/25 20:00 Sodium Chloride 1,000 ml @ 60 mls/hr [id number] IV 05/09/25 23:45 05/10/25 16:43 DC 05/10/25 00:01 Enoxaparin Sodium (Lovenox) 40 mg DAILY SC 05/10/25 10:00 05/10/25 10:25 Venlafaxine HCl (Effexor) 100 mg QPM PO 05/10/25 18:00 05/10/25 16:43 DC Vancomycin HCl 0 ml @ 0 mls/hr PER PHARMACY IV 05/10/25 05:30 05/10/25 16:43 DC Cefepime HCl 50 ml @ 12.5 mls/hr Q12H IV 05/10/25 05:45 05/10/25 07:19 Vancomycin HCl 100 ml @ 100 mls/hr DAILY@0600 IV 05/11/25 06:00 05/10/25 16:43 DC Acetaminophen/ Hydrocodone Bitart ([place] 5/325MG Tab) 1 tab Q6HPRN PRN PO MODERATE PAIN (4-6 PAIN SCALE) 05/10/25 15:45 05/10/25 18:32 Furosemide (Lasix Injection) 20 mg BIDD IV 05/10/25 18:00 05/10/25 18:31 Diltiazem HCl 125 ml @ 5 mls/hr Q24H IV 05/10/25 17:45 05/10/25 17:40 Carvedilol (Coreg Tablet) 6.25 mg Q12HR PO 05/10/25 22:00 Amiodarone HCl 250 ml @ 16.66 mls/ hr Q15H1M IV 05/11/25 01:15 UNV Review of Systems Constitutional: No symptom reported Ears, Nose, & Throat: No symptom reported Eyes: No symptom reported Neurological: No symptoms reported Pulmonary/Respiratory: SOB, DE LA PAZ, PND Cardiovascular: No symptom reported Gastrointestinal: No symptom reported Genitourinary: No symptom reported Musculoskeletal: No symptom reported Skin: No symptom reported Psychiatric: No symptom reported Endocrine: No symptom reported Hemotologic/Lymphatic: No symptom reported Vital Signs Vital Signs Date Time Temp Pulse Resp B/P (MAP) Pulse Ox O2 Delivery O2 Flow Rate FiO2 05/10/25 20:06 132 28 98 05/10/25 20:00 Non-Rebreather 15.0 05/10/25 20:00 N/A 05/10/25 19:00 156/85 05/10/25 00:07 98.2 98.2 Physical Exam GENERAL: Alert and oriented x 3. No acute distress. Thin appearing. EYES: PERRL, EOMI. Anicteric. HENT: Moist mucous membranes. LUNGS: Coarse bilateral breath sounds CARDIOVASCULAR: Regular rate and rhythm. ABDOMEN: Soft, nontender and nondistended. EXTREMITIES: No edema. NEUROLOGIC: No focal neurological deficits. SKIN: Warm, dry. Labs/Diagnostic Data Labs Test 05/10/25 19:29 05/10/25 08:40 05/10/25 01:00 05/10/25 00:00 Range/Units Blood Gas Specimen Type Arterial Blood Gas Sample Site Right radial Blood Gas Patient Temperature 37.0 Arterial Blood Date Drawn [id number] Arterial Blood pH 7.399 7.350-7.450 Arterial Blood Partial Pressure CO2 28.9 L 32.0-45.0 mmHg Arterial Blood Partial Pressure O2 74.1 L 83.0-108.0 mmHg Arterial Blood HCO3 17.5 L 21.0-28.0 mmol/L Arterial Blood Oxygen Saturation 94.5 94.0-98.0 % Arterial Blood Base Excess -6.0 L -2.0-3.0 mmol/L Arterial Blood Oxyhemoglobin 93.2 L 94.0-98.0 % Arterial Blood Carboxyhemoglobin 1.4 0.5-1.5 % Arterial Blood Methemoglobin 0.0 0.0-1.5 % Arterial Blood Deoxyhemoglobin 5.4 H 0.0-5.0 % Ancelmo Test Positive Blood Gas Total Hemoglobin 12.80 12.0-16.0 g/dL Blood Gas Liter Flow 15.00 Blood Gas Modality Mask - nrb Blood Gas Spontaneous Rate 28 FiO2 % 100.0 White Blood Count 11.6 H 4.4-10.8 10^3/uL Red Blood Count 3.74 L 4.0-5.20 10^6/uL Hemoglobin 10.8 L 12.2-16.2 g/dL Hematocrit 33.8 L 36.0-46.0 % Mean Corpuscular Volume 90.4 80.0-100.0 fL Mean Corpuscular Hemoglobin 28.9 28.0-32.0 pg Mean Corpuscular Hemoglobin Concent 32.0 32.0-36.0 g/dL Red Cell Distribution Width 15.2 H 11.8-14.3 % Platelet Count 432 140-450 10^3/uL Mean Platelet Volume 6.5 L 6.9-10.8 fL Neutrophils (%) (Auto) 83.4 H 37.0-80.0 % Lymphocytes (%) (Auto) 9.3 L 10.0-50.0 % Monocytes (%) (Auto) 3.8 0.0-12.0 % Eosinophils (%) (Auto) 3.1 0.0-7.0 % Basophils (%) (Auto) 0.4 0.0-2.0 % Neutrophils # (Auto) 9.7 H 1.6-8.6 10 ^3/uL Lymphocytes # (Auto) 1.1 0.4-5.4 10 ^3/uL Monocytes # (Auto) 0.4 0-1.3 10 ^3/uL Eosinophils # (Auto) 0.4 0-0.8 10 ^3/uL Basophils # (Auto) 0 0-0.2 10 ^3/uL Nucleated Red Blood Cells 0.1 % Sodium Level 140 136-145 mmol/L Potassium Level 3.2 L 3.5-5.1 mmol/L Chloride Level 105 98-107 mmol/L Carbon Dioxide Level 22 20-31 mmol/L Anion Gap 13 5-15 Blood Urea Nitrogen 12 9-23 mg/dL Creatinine 0.61 0.550-1.02 mg/dL Glomerular Filtration Rate Calc 86 >90 mL/min BUN/Creatinine Ratio 19.7 10.0-20.0 Serum Glucose 109 H 74-106 mg/dL Calcium Level 8.4 L 8.7-10.4 mg/dL Thyroid Stimulating Hormone (TSH) 1.05 0.55-4.78 uIU/mL Influenza Type A Antigen Negative Negative Influenza Type B Antigen Negative Negative SARS-CoV-2 Antigen (Rapid) Negative NEGATIVE Troponin I High Sensitivity 95 *H </=34 ng/L Test 05/09/25 23:57 05/09/25 21:16 Range/Units Lactic Acid Level 1.5 0.4-2.0 mmol/L D-Dimer, Quantitative 3.03 H 0.0-0.49 mg/L FEU Magnesium Level 1.8 1.6-2.6 mg/dL Total Bilirubin 0.3 0.2-1.0 mg/dL Aspartate Amino Transferase (AST) 39 13-40 U/L Alanine Aminotransferase (ALT) 14 7-40 U/L Alkaline Phosphatase 168 H 46-116 U/L B-Type Natriuretic Peptide 358.52 0-100 pg/mL Total Protein 6.9 5.7-8.2 g/dL Albumin 3.7 3.2-4.8 g/dL Assessment Sepsis with pneumonia, ?UTI. Acute hypoxic respiratory failure secondary to above. NSTEMI, likely type 2 secondary to above. Multifocal atrial tachycardia. Rule out structural heart disease. Hypertension. Chronic lower back pain. Plan/Recommendation I agree with your ongoing assessment and care of plan. Patient has been seen by Anya Magaña NP on my behalf, her and I discussed the plan with the patient. We will continue further cardiac evaluation with a transthoracic echocardiogram to rule out structural heart disease. In the meantime, initiate rate control with Cardizem IV and replenish electrolytes as necessary, potassium over 4 and magnesium over 2. Continue ABX therapy per primary care team. Monitor ECG changes closely and notify accordingly. Further orders per clinical course. Additional plan as per the hospital course. Plan discussed with: Patient NYHA Physical activity limitations: NA Date of Service: May 10, 2025 Billing Provider: YVES CHACON MD Cardiology Common Codes: [id number] INP/OBS CARE (High) Cardiology Consultation Codes: [id number] CONSULT <45MIN YVES CHACON MD May 10, 2025 20:31
[2025-05-10 21:32] LABS: Urine Protein, UAD Negative (Negative)
[2025-05-10] MEDS: CARVEDILOL 3.125 MG TAB PO SCH (22:00)
[2025-05-11] VITALS (9 sets, daily range): BP systolic 117–118; BP diastolic 58–67; PULSE 96–113; RESP 15–28; O2SAT 92–100
--- NOTE | 2025-05-11 00:43 | DVH ---
CHEST RADIOGRAPH INDICATION: chf TECHNIQUE: 1 view COMPARISON: Previous study CTA chest, chest radiograph 2 days prior FINDINGS: Lines and Tubes: External leads. Lungs/Pleura: Unchanged. Cardiomediastinum: Unchanged. Other: Unchanged osseous structures. IMPRESSION: 1. No change from comparison exam. Diffuse interstitial opacities with small pleural effusions.
[2025-05-11] MEDS ORDERED: VANCOMYCIN 750MG KIT 100 ML IV SCH (06:00)
[2025-05-11 06:36] LABS: Hematocrit 34.2 % (36.0-46.0); Hemoglobin 10.9 g/dL (12.2-16.2); Mean Corpuscular Hemoglobin 29.2 pg (28.0-32.0); Mean Corpuscular Volume 91.5 fL (80.0-100.0); Nucleated Red Blood Cells % 0.3 %
[2025-05-11 06:57] LABS: Alanine Aminotransferase 15 U/L (7-40); Albumin 3.7 g/dL (3.2-4.8); Anion Gap 10 (5-15); BUN/Creatinine Ratio 11.4 (10.0-20.0); Carbon Dioxide 24 mmol/L (20-31); Chloride 105 mmol/L (98-107); Potassium 4.1 mmol/L (3.5-5.1); Sodium 139 mmol/L (136-145); Total Protein 6.8 g/dL (5.7-8.2)
[2025-05-11 06:58] LABS: Bilirubin, Total 0.6 mg/dL (0.2-1.0)
[2025-05-11 06:59] LABS: Alkaline Phosphatase 163 U/L (46-116); Blood Urea Nitrogen 8 mg/dL (9-23); Calcium 8.7 mg/dL (8.7-10.4); Glucose 126 mg/dL (74-106)
--- NOTE | 2025-05-11 08:32 | DVHPN2 ---
Consult Progress Note Date Seen: May 11, 2025 Subjective Review of Systems: CVS:Normal, RESPIRATORY:Abnormal, NEURO:Normal Other Systems: Notified of worsening tachycardia last night. Twelve-lead ECG obtained revealing MAT for which an amiodarone drip was ordered, nevertheless not initiated. The patient remained on a cardizem drip all night. Now in a sinus rhythm Objective vital signs Vital Sign Date Time Temp Pulse Resp B/P (MAP) Pulse Ox O2 Delivery O2 Flow Rate FiO2 05/11/25 08:00 121/67 05/11/25 07:00 101 20 98 05/11/25 06:19 Non-Rebreather 12.0 05/11/25 06:19 N/A 05/10/25 20:00 98.7 98.7 Total Intake and Output 05/10/25 05/10/25 05/11/25 15:00 23:00 07:00 Intake Total 110.0 ml 37.5 ml 12.5 ml Output Total 600 ml Balance 110.0 ml 37.5 ml -587.5 ml medications Current Medications Medications Dose Ordered Sig/Ely Route Start Time Stop Time Status Last Admin Dose Admin Nitroglycerin 0.4 mg Q5MINP PRN SL 05/09/25 23:00 Morphine Sulfate 2 mg Q30M PRN IV 05/09/25 23:00 05/10/25 13:30 2 MG Ipratropium [place] 0.5 mg Q4HPRN PRN NEB 05/09/25 23:00 05/11/25 06:19 0.5 MG Enoxaparin Sodium 40 mg DAILY SC 05/10/25 10:00 05/10/25 10:25 40 MG Cefepime HCl 50 ml @ 12.5 mls/hr Q12H IV 05/10/25 05:45 05/11/25 05:45 12.5 MLS/HR Acetaminophen/ Hydrocodone Bitart 1 tab Q6HPRN PRN PO 05/10/25 15:45 05/10/25 18:32 1 TAB Furosemide 20 mg BIDD IV 05/10/25 18:00 05/11/25 05:46 20 MG Carvedilol 3.125 mg Q12HR PO 05/11/25 10:00 UNV Examination: GENERAL:Abnormal (Generalized weakness), LUNGS:Abnormal (Coarse bilaterally, no won NRB mask at 10 LPM), CVS:Normal (NSR 90s bpm), NEURO:Normal laboratory and microbiology Laboratory Tests 05/11/25 06:08 Test 05/11/25 06:08 Range/Units Serum Glucose 126 H 74-106 mg/dL Problem List/Assessment/Plan Problem List/Assessment/Plan Sepsis with pneumonia Acute hypoxic respiratory failure secondary to above NSTEMI, likely type 2 secondary to above Multifocal atrial tachycardia, now NSR Rule out structural heart disease Hypertension Chronic lower back pain Plan/Recommendation (Dr. Mix) We will continue further cardiac evaluation with a transthoracic echocardiogram to rule out structural heart disease, preliminary: preserved LVEF. In the meantime, continue rate control with low-dose Coreg and replenish electrolytes as necessary, potassium over 4 and magnesium over 2. Continue ABX therapy per primary care team. Monitor ECG changes closely and notify accordingly. Kindly call if in need of further recommendations. Thank you for allowing us to participate in this patient's care. This medical document was created using an electronic medical record system with voice recognition software and computerized dictation system. Although this document has been carefully reviewed, there might still be some phonetic and typographical errors. Occasional wrong-word or ``sound-alike substitutions may have occurred due to the inherent limitations of voice recognition software. These areas are purely typographical due to imperfections of the software programs and do not reflect any compromise in the patient's medical care. Please read the chart carefully and recognize, using context, where these substitutions have occurred. Plan discussed with: Patient, Other Date of Service: May 11, 2025 Billing Provider: VALERIA MG Cardiology Common Codes: [id number] CARE 30-74 MIN VALERIA MG May 11, 2025 08:32
[2025-05-11] MEDS: CARVEDILOL 3.125 MG TAB PO SCH (10:05)
--- NOTE | 2025-05-11 13:16 | DVHPN2 ---
Progress Note Date Seen: May 11, 2025 Medical Necessity Reason Pt with a Central, PICC or Fol: Yes The following are medically ne: Gage Catheter Reason for gage catheter: Strict I&O Subjective Patient reports: No new complaints Review of Systems: HEENT:Normal, CVS:Normal, RESPIRATORY:Normal, GI:Normal, :Normal, MSK:Normal, NEURO:Normal Objective vital signs Vital Sign Date Time Temp Pulse Resp B/P (MAP) Pulse Ox O2 Delivery O2 Flow Rate FiO2 05/11/25 12:30 89 17 104/62 (76) 94 05/11/25 07:30 97.7 97.7 05/11/25 07:30 Non-Rebreather 15 N/A Total Intake and Output 05/10/25 05/10/25 05/11/25 15:00 23:00 07:00 Intake Total 110.0 ml 37.5 ml 12.5 ml Output Total 600 ml Balance 110.0 ml 37.5 ml -587.5 ml medications Current Medications Medications Dose Ordered Sig/Ely Route Start Time Stop Time Status Last Admin Dose Admin Nitroglycerin 0.4 mg Q5MINP PRN SL 05/09/25 23:00 Morphine Sulfate 2 mg Q30M PRN IV 05/09/25 23:00 05/10/25 13:30 2 MG Ipratropium [place] 0.5 mg Q4HPRN PRN NEB 05/09/25 23:00 05/11/25 06:19 0.5 MG Enoxaparin Sodium 40 mg DAILY SC 05/10/25 10:00 05/11/25 10:06 40 MG Cefepime HCl 50 ml @ 12.5 mls/hr Q12H IV 05/10/25 05:45 05/11/25 05:45 12.5 MLS/HR Acetaminophen/ Hydrocodone Bitart 1 tab Q6HPRN PRN PO 05/10/25 15:45 05/11/25 10:07 1 TAB Furosemide 20 mg BIDD IV 05/10/25 18:00 05/11/25 05:46 20 MG Carvedilol 3.125 mg Q12HR PO 05/11/25 10:00 05/11/25 10:05 3.125 MG Examination: GENERAL:Normal, HEENT:Normal, NECK:Normal, LUNGS:Normal, LUNGS:Abnormal (on high flow oxygen, rales), CVS:Normal, ABDOMEN:Normal, MSK:Normal, SKIN:Normal, NEURO:Normal, :Normal laboratory and microbiology Laboratory Tests 05/11/25 06:08 Test 05/11/25 06:08 Range/Units Serum Glucose 126 H 74-106 mg/dL Problem List/Assessment/Plan Problem List/Assessment/Plan #1 acute resp failure: cont oxygen, high flow oxygen #2 acute on chronic systolic/diastolic heart failure: lasix iv, cardio eval #3 htn #4 chronic back pain #5 nstemi #6 ?pneumonia/sepsis: gram positive/neg: iv antibiotics #7 MAT unstable for transfer Plan discussed with: Patient My Orders My Orders Orders - AARON CONNELL MD Procedure Category Date Status Time Hydrocodone-Acet PHA 05/10/25 In Process 5/325mg Tab ([place] 15:45 * Cardiology Consult CONS 05/10/25 Transmitted 16:39 Furosemide Injection PHA 05/10/25 In Process (Lasix Injection) 18:00 Insert Gage Catheter CARLOS 05/10/25 In Process 16:40 Transfer Orders XFER 05/10/25 Transmitted 16:40 Chest Portable XY 05/11/25 Resulted 06:00 Communication Order ORDERS 05/10/25 Transmitted 18:01 2 Gm Sodium Diet DIET 05/11/25 Transmitted Lunch Critical Care Time (mins): 41 (critical care time excluding procedures is 41 mins) Date of Service: May 11, 2025 Billing Provider: AARON CONNELL MD Common Visit Codes: [id number] CARE 30-74 MIN AARON CONNELL MD May 11, 2025 13:16
--- NOTE | 2025-05-11 17:32 | DVHSR ---
APPROVED REPORT EXAM: Two-dimensional and M-mode echocardiogram with Doppler and color Doppler. Blood Pressure: 118/63 mmHg INDICATION Dyspnea ACute hypoxic respiratory failure RISK FACTORS Height: 63, Weight: 110 DIMENSIONS LVDd 3.6 (3.8-5.7cm) LA (2D) 3.3 (1.9-4.0cm) Aortic Root 3.2 (2.0-3.7cm) LVDs 2.6 (2.5-4.0cm) LA (MM) (1.9-4.0cm) Aortic Cusp Exc 1.5 (1.5-2.0cm) EF (%) 55.0 (55-70%) Rt. Atrium 4.2 (1.9-4.0cm) Asc. Aorta cm Mitral Valve Mitral Mitral Stenosis E wave 0.71m/s MV Mean GR. mmHg A wave 1.26m/s MV Peak GR. mmHg E/A ratio 0.6 2D MVA cm2 DECEL Time 244ms PRESS 1/2 Time ms Aortic Valve Aortic Valve Aortic Stenosis V1 1.04m/s AO Mean GR. 4mmHg V2 1.39m/s AO Peak GR. 8mmHg LVOT Diameter 1.7 (1.8-2.4cm) Doppler LILLI 1.70cm2 Pulmonic Valve V2 0.76m/s Tricuspid Valve TR Velocity 2.58m/s RVSP 32mmHg Other Information Quality : Technically Limited Rhythm : Technically limited study due to body habitus and patient rhythm and high heart rate. Conclusion LVEF is normal at 60-65%, mild LVH Right ventricle is mildly dilated, moderately reduced function Mild tricuspid regurgitation mild pulmonary hypertension
--- NOTE | 2025-05-11 23:35 | DVHPN2 ---
Consult Progress Note Date Seen: May 11, 2025 Subjective Review of Systems: CVS:Normal, RESPIRATORY:Abnormal, NEURO:Normal Other Systems: Patient was seen and evaluated in follow up. Notified of worsening tachycardia last night. Twelve-lead ECG obtained revealing MAT for which an amiodarone drip was ordered, nevertheless not initiated. The patient remained on a Cardizem drip all night. Now in sinus rhythm. WBC 12.8. Chest x-ray shows diffuse interstitial opacities with small pleural effusions. Telemetry reviewed. Objective vital signs Vital Sign Date Time Temp Pulse Resp B/P (MAP) Pulse Ox O2 Delivery O2 Flow Rate FiO2 05/11/25 11:10 96 111/62 05/11/25 10:30 17 98 05/11/25 07:30 97.7 97.7 05/11/25 07:30 Non-Rebreather 15 N/A Total Intake and Output 05/10/25 05/10/25 05/11/25 15:00 23:00 07:00 Intake Total 110.0 ml 37.5 ml 12.5 ml Output Total 600 ml Balance 110.0 ml 37.5 ml -587.5 ml medications Current Medications Medications Dose Ordered Sig/Ely Route Start Time Stop Time Status Last Admin Dose Admin Nitroglycerin 0.4 mg Q5MINP PRN SL 05/09/25 23:00 Morphine Sulfate 2 mg Q30M PRN IV 05/09/25 23:00 05/10/25 13:30 2 MG Ipratropium [place] 0.5 mg Q4HPRN PRN NEB 05/09/25 23:00 05/11/25 06:19 0.5 MG Enoxaparin Sodium 40 mg DAILY SC 05/10/25 10:00 05/11/25 10:06 40 MG Cefepime HCl 50 ml @ 12.5 mls/hr Q12H IV 05/10/25 05:45 05/11/25 05:45 12.5 MLS/HR Acetaminophen/ Hydrocodone Bitart 1 tab Q6HPRN PRN PO 05/10/25 15:45 05/11/25 10:07 1 TAB Furosemide 20 mg BIDD IV 05/10/25 18:00 05/11/25 05:46 20 MG Carvedilol 3.125 mg Q12HR PO 05/11/25 10:00 05/11/25 10:05 3.125 MG Examination: GENERAL:Abnormal (Generalized weakness), HEENT:Normal, NECK:Normal, LUNGS:Abnormal (Coarse bilaterally, no won NRB mask at 10 LPM), CVS:Normal (NSR 90s bpm), NEURO:Normal laboratory and microbiology Laboratory Tests 05/11/25 06:08 Test 05/11/25 06:08 Range/Units Serum Glucose 126 H 74-106 mg/dL Problem List/Assessment/Plan Problem List/Assessment/Plan Problem list Sepsis with pneumonia. Acute hypoxic respiratory failure secondary to above. NSTEMI, likely type 2 secondary to above. Multifocal atrial tachycardia, now NSR. Rule out structural heart disease. Hypertension. Chronic lower back pain. Plan/Recommendation Continued all current supportive medical care. Patient has been seen by Anya Magaña NP on my behalf, her and I discussed the plan with the patient. We will continue further cardiac evaluation with a transthoracic echocardiogram to rule out structural heart disease, preliminary: preserved LVEF. In the meantime, continue rate control with low-dose Coreg and replenish electrolytes as necessary, potassium over 4 and magnesium over 2. Continue ABX therapy per primary care team. Monitor ECG changes closely and notify accordingly. Additional plan as per the hospital course. Plan discussed with: Patient Date of Service: May 11, 2025 Billing Provider: YVES CHACON MD Cardiology Common Codes: [id number] CARE 30-74 MIN YVES CHACON MD May 11, 2025 12:20
[2025-05-12] VITALS (39 sets, daily range): BP systolic 99–145; BP diastolic 58–103; PULSE 92–128; RESP 14–37; TEMP 98.3–99.1; O2SAT 88–100
[2025-05-12] MEDS: MORPHINE SULFATE 4 MG/ML SYR/VIAL ONE (01:34)
[2025-05-12] MEDS: LORazepam 2MG/ML-1ML VIAL IV ONE (04:47)
[2025-05-12] MEDS: GABAPENTIN 300 MG CAP PO SCH ×2 (06:35→22:16)
[2025-05-12 08:21] LABS: Base Excess 3.5 mmol/L (-2.0-3.0)
[2025-05-12] MEDS ORDERED: FUROSEMIDE 20 MG/2 ML VIAL IV ONE (09:30)
[2025-05-12] MEDS: FAMOTIDINE 20 MG TAB PO SCH (09:45)
--- NOTE | 2025-05-12 10:20 | DVHPN2 ---
Progress Note Date Seen: May 12, 2025 Medical Necessity Reason Pt with a Central, PICC or Fol: Yes The following are medically ne: Gage Catheter Reason for gage catheter: Strict I&O Subjective Patient reports: No new complaints Review of Systems: HEENT:Normal, CVS:Normal, RESPIRATORY:Normal, GI:Normal, :Normal, MSK:Normal, NEURO:Normal Objective vital signs Vital Sign Date Time Temp Pulse Resp B/P (MAP) Pulse Ox O2 Delivery O2 Flow Rate FiO2 05/12/25 09:47 118 105/64 05/12/25 07:55 22 95 Hi-Flow Heated NC+ 55 72 72 05/12/25 07:55 99.7 99.7 Total Intake and Output 05/11/25 05/11/25 05/12/25 15:00 23:00 07:00 Intake Total 37.5 ml 50.0 ml Output Total 1400 ml Balance 37.5 ml 50.0 ml -1400 ml medications Current Medications Medications Dose Ordered Sig/Ely Route Start Time Stop Time Status Last Admin Dose Admin Nitroglycerin 0.4 mg Q5MINP PRN SL 05/09/25 23:00 Morphine Sulfate 2 mg Q30M PRN IV 05/09/25 23:00 05/12/25 01:27 2 MG Ipratropium [place] 0.5 mg Q4HPRN PRN NEB 05/09/25 23:00 05/12/25 06:57 0.5 MG Enoxaparin Sodium 40 mg DAILY SC 05/10/25 10:00 05/12/25 09:47 40 MG Cefepime HCl 50 ml @ 12.5 mls/hr Q12H IV 05/10/25 05:45 05/12/25 06:30 12.5 MLS/HR Acetaminophen/ Hydrocodone Bitart 1 tab Q6HPRN PRN PO 05/10/25 15:45 05/11/25 22:29 1 TAB Furosemide 20 mg BIDD IV 05/10/25 18:00 05/12/25 06:31 20 MG Carvedilol 3.125 mg Q12HR PO 05/11/25 10:00 05/12/25 09:47 3.125 MG Gabapentin 200 mg TID PO 05/12/25 06:00 05/12/25 06:35 200 MG Famotidine 20 mg DAILY PO 05/12/25 10:00 05/12/25 09:45 20 MG Enteral Nutritional Formula 240 ml BIDWM PO 05/12/25 18:00 Doxycycline Hyclate 100 ml @ 50 mls/hr Q12H IV 05/12/25 10:15 UNV Examination: GENERAL:Normal, HEENT:Normal, NECK:Normal, LUNGS:Normal, LUNGS:Abnormal (on high flow, rales), CVS:Normal, ABDOMEN:Normal, MSK:Normal, SKIN:Normal, NEURO:Normal, :Normal laboratory and microbiology Laboratory Tests 05/11/25 06:08 Test 05/11/25 06:08 Range/Units Serum Glucose 126 H 74-106 mg/dL Microbiology Date/Time Source Procedure Growth Status 05/11/25 08:58 Blood Blood Culture - Preliminary NO GROWTH AFTER 24 HOURS OF INCUBATION. Resulted 05/11/25 08:48 Nose MRSA Screen - Final Complete Problem List/Assessment/Plan Problem List/Assessment/Plan #1 acute resp failure: cont oxygen, high flow oxygen #2 acute on chronic systolic/diastolic heart failure: lasix iv, cardio eval #3 htn #4 chronic back pain #5 nstemi #6 ?pneumonia/sepsis: gram positive/neg: iv antibiotics, add doxy #7 MAT unstable for transfer transfer to icu Plan discussed with: Patient My Orders My Orders Orders - AARON CONNELL MD Procedure Category Date Status Time 2 Gm Sodium Diet DIET 05/11/25 Transmitted Lunch Nutritional PHA 05/12/25 In Process Supplements (Ensure 18:00 Basic Metabolic Panel LAB 05/12/25 Transmitted 10:14 Magnesium LAB 05/12/25 Transmitted 10:14 Complete Blood Count LAB 05/12/25 Transmitted 10:14 Doxycycline PHA 05/12/25 Logged 100mg/100ml 10:15 Basic Metabolic Panel LAB 05/13/25 Verified 06:00 Complete Blood Count LAB 05/13/25 Verified 06:00 Chest Portable XY 05/13/25 Logged 06:00 Abg W/ Co-Ox RT 05/13/25 Logged 06:00 Critical Care Time (mins): 38 (critical care time excluding procedures is 38 mins) Date of Service: May 12, 2025 Billing Provider: AARON CONNELL MD Common Visit Codes: [id number] CARE 30-74 MIN AARON CONNELL MD May 12, 2025 10:20
[2025-05-12 10:53] LABS: Hematocrit 33.2 % (36.0-46.0); Hemoglobin 11.0 g/dL (12.2-16.2); Mean Corpuscular Hemoglobin 29.3 pg (28.0-32.0); Mean Corpuscular Volume 88.5 fL (80.0-100.0); Nucleated Red Blood Cells % 0.0 %
[2025-05-12 11:00] LABS: Chloride 100 mmol/L (98-107); Sodium 141 mmol/L (136-145)
[2025-05-12 11:01] LABS: Anion Gap 11 (5-15); Carbon Dioxide 30 mmol/L (20-31)
[2025-05-12 11:03] LABS: Calcium 8.6 mg/dL (8.7-10.4); Potassium 3.2 mmol/L (3.5-5.1)
[2025-05-12 11:06] LABS: BUN/Creatinine Ratio 16.1 (10.0-20.0); Blood Urea Nitrogen 10 mg/dL (9-23)
[2025-05-12 11:07] LABS: Magnesium 1.6 mg/dL (1.6-2.6)
[2025-05-12] MEDS: DOXYCYCLINE 100MG/100ML 100 ML IV SCH (11:07)
[2025-05-12 11:08] LABS: Glucose 116 mg/dL (74-106)
[2025-05-12] MEDS: MAGNESIUM SULFATE 1GM/100ML 100 ML IV SCH (12:46)
[2025-05-12] MEDS: POTASSIUM EFFERVESENT TAB 25 MEQ PO ONE (12:46)
[2025-05-12] MEDS: Ensure HIGH Protein Chocolate 8oz Bottle PO SCH (18:41)
[2025-05-12 22:53] LABS: Urine Protein, UAD TRACE (Negative)
--- NOTE | 2025-05-12 23:27 | DVHPN2 ---
Progress Note - Dictate Date Seen: May 12, 2025 Medical Necessity Reason Pt with a Central, PICC or Fol: No The following are medically ne: Gage Catheter Reason for gage catheter: Strict I&O Subjective Patient was seen and evaluated in follow up in the ICU. Patient is complaining of worsening SOB. The patient is now on high flow oxygen at 55L. WBC 11.5, K 3.2, CA 8.6. Echocardiogram shows LV EF Of 60-65%. vital signs Vital Sign Date Time Temp Pulse Resp B/P (MAP) Pulse Ox O2 Delivery O2 Flow Rate FiO2 05/12/25 19:19 103 22 94 55.0 70 05/12/25 19:00 145/83 (103) 05/12/25 18:38 Hi-Flow Heated NC+ 05/12/25 17:00 98.9 98.9 Total Intake and Output 05/11/25 05/11/25 05/12/25 15:00 23:00 07:00 Intake Total 37.5 ml 50.0 ml Output Total 1400 ml Balance 37.5 ml 50.0 ml -1400 ml medications Current Medications Medications Dose Ordered Sig/Ely Route Start Time Stop Time Status Last Admin Dose Admin Nitroglycerin 0.4 mg Q5MINP PRN SL 05/09/25 23:00 Morphine Sulfate 2 mg Q30M PRN IV 05/09/25 23:00 05/12/25 01:27 2 MG Ipratropium [place] 0.5 mg Q4HPRN PRN NEB 05/09/25 23:00 05/12/25 06:57 0.5 MG Enoxaparin Sodium 40 mg DAILY SC 05/10/25 10:00 05/12/25 09:47 40 MG Cefepime HCl 50 ml @ 12.5 mls/hr Q12H IV 05/10/25 05:45 05/12/25 17:16 12.5 MLS/HR Acetaminophen/ Hydrocodone Bitart 1 tab Q6HPRN PRN PO 05/10/25 15:45 05/12/25 12:30 1 TAB Furosemide 20 mg BIDD IV 05/10/25 18:00 05/12/25 17:16 20 MG Carvedilol 3.125 mg Q12HR PO 05/11/25 10:00 05/12/25 09:47 3.125 MG Gabapentin 200 mg TID PO 05/12/25 06:00 05/12/25 13:55 200 MG Enteral Nutritional Formula 240 ml BIDWM PO 05/12/25 18:00 05/12/25 18:41 240 ML Doxycycline Hyclate 100 ml @ 50 mls/hr Q12H IV 05/12/25 10:15 05/12/25 11:07 50 MLS/HR Pantoprazole Sodium 40 mg DAILY IV 05/13/25 10:00 objective GENERAL: Alert and oriented x 3. No acute distress. Thin appearing. EYES: PERRL, EOMI. Anicteric. HENT: Moist mucous membranes. LUNGS: Coarse bilateral breath sounds CARDIOVASCULAR: Regular rate and rhythm. ABDOMEN: Soft, nontender and nondistended. EXTREMITIES: No edema. NEUROLOGIC: No focal neurological deficits. SKIN: Warm, dry. laboratory and microbiology Laboratory Tests 05/12/25 10:28 Test 05/12/25 10:28 Range/Units Serum Glucose 116 H 74-106 mg/dL Problem List Sepsis with pneumonia. Acute hypoxic respiratory failure secondary to above. NSTEMI, likely type 2 secondary to above. Multifocal atrial tachycardia, now NSR. Rule out structural heart disease. Hypertension. Chronic lower back pain. Pilmonary HTN. Assessment/Plan Continued all current supportive medical care. Morphine and [place] for pain management. Coreg. IV antibiotics as ordered. DVT and GI prophylactics. Diuretics with Lasix. Nitro SL. Additional plan as per the hospital course. Critical care time of 45 minutes provided to include time spent evaluation of patient at bedside, when appropriate patient/family education for diagnosis, treatment plan, review of pertinent medical information and discussion of care with specialty providers and PCP. Plan discussed with: Patient YVES CHACON MD May 12, 2025 21:50
[2025-05-13] VITALS (49 sets, daily range): BP systolic 109–156; BP diastolic 55–85; PULSE 89–128; RESP 15–37; TEMP 97.8–99.1; O2SAT 88–100
[2025-05-13 03:32] LABS: Hematocrit 34.8 % (36.0-46.0); Hemoglobin 11.2 g/dL (12.2-16.2); Mean Corpuscular Hemoglobin 28.9 pg (28.0-32.0); Mean Corpuscular Volume 89.9 fL (80.0-100.0); Nucleated Red Blood Cells % 0.1 %
[2025-05-13 03:35] LABS: Chloride 99 mmol/L (98-107); Potassium 4.2 mmol/L (3.5-5.1); Sodium 138 mmol/L (136-145)
[2025-05-13 03:36] LABS: Anion Gap 6 (5-15); Calcium 8.9 mg/dL (8.7-10.4)
[2025-05-13 03:38] LABS: Carbon Dioxide 33 mmol/L (20-31)
[2025-05-13 03:41] LABS: BUN/Creatinine Ratio 24.6 (10.0-20.0); Blood Urea Nitrogen 15 mg/dL (9-23); Glucose 105 mg/dL (74-106)
--- NOTE | 2025-05-13 05:58 | DVH ---
CHEST RADIOGRAPH Indication: CHF Technique: Single frontal view of the chest was obtained COMPARISON: XY CHEST PORTABLE on DOS: 05/11/25, XY CHEST PORTABLE on DOS: 05/09/25 FINDINGS: Lines and Tubes: None Lungs: Diffuse pulmonary vascular congestion. Pleura: No effusion.No pneumothorax. Cardiomediastinal contours: Unremarkable Bones: Unremarkable IMPRESSION: Diffuse pulmonary vascular congestion.
[2025-05-13] MEDS ORDERED: DESV100T8 OR (06:31)
--- NOTE | 2025-05-13 07:56 | DVHPN2 ---
Subjective Patient denies any symptoms Reviewed: Care Plan, H&P, Labs, Medications Changes from previous H/P or p: No Changes General: Per HPI Eyes: No Pain, No Vision change, No Conjunctivae inflammation, No Eyelid inflammation, No Other, No Redness ENT: No Ear pain, No Ear discharge, No Nose pain, No Nose discharge, No Nose congestion, No Mouth pain, No Mouth swelling, No Throat pain, No Throat swelling, No Other Cardiovascular: No Chest Pain, No Palpitations, No Orthopnea, No Paroxysmal Noc. Dyspnea, No Edema, No Lt Headedness, No Other Respiratory: No Cough, No Dry; Shortness of breath; No SOB with excertion, No Wheezing, No Hemoptysis, No Pleuritic Pain, No Sputum, No Other Gastrointestinal: No Nausea, No Vomiting, No Abdominal Pain, No Diarrhea, No Constipation, No Melena, No Hematochezia, No Other Musculoskeletal: No other, No neck pain, No shoulder pain, No arm pain; back pain; No hand pain, No leg pain, No foot pain Skin: No Rash, No Lesions, No Jaundice, No Bruising, No Other Objective Vitals Vital Signs Date Time Temp Pulse Resp B/P (MAP) Pulse Ox O2 Delivery O2 Flow Rate FiO2 05/13/25 06:14 97 20 100 50.0 60 05/13/25 06:00 140/71 (94) 05/13/25 04:00 97.9 97.9 05/13/25 00:00 Hi-Flow Heated NC+ Intake/Output Intake and Output 05/13/25 07:00 Intake Total 845.0 ml Output Total 2700 ml Balance -1855.0 ml Intake Oral 320 ml IV Total 525.0 ml Output Urine Total 2700 ml # Bowel Movements 2 General Appearance: Alert, Oriented X3, Cooperative, mild distress HEENT: Atraumatic, PERRLA Lungs: Clear to auscultation, Normal air movement, Other (Hi flow 50%, 50lpm) Cardiovascular: Normal S1, Normal S2 Abdomen: Normal bowel sounds, Soft, No tenderness, No hepatospenomegaly Genitourinary: No Apparent Abnormalities Skin: Intact Psych/Mental Status: Mental status NL, Mood NL Medications Current Medications Medications Dose Ordered Sig/Ely Route Start Time Stop Time Status Last Admin Dose Admin Nitroglycerin 0.4 mg Q5MINP PRN SL 05/09/25 23:00 Morphine Sulfate 2 mg Q30M PRN IV 05/09/25 23:00 05/12/25 01:27 2 MG Ipratropium [place] 0.5 mg Q4HPRN PRN NEB 05/09/25 23:00 05/12/25 06:57 0.5 MG Enoxaparin Sodium 40 mg DAILY SC 05/10/25 10:00 05/12/25 09:47 40 MG Cefepime HCl 50 ml @ 12.5 mls/hr Q12H IV 05/10/25 05:45 05/13/25 04:46 12.5 MLS/HR Acetaminophen/ Hydrocodone Bitart 1 tab Q6HPRN PRN PO 05/10/25 15:45 05/12/25 12:30 1 TAB Furosemide 20 mg BIDD IV 05/10/25 18:00 05/13/25 04:45 20 MG Carvedilol 3.125 mg Q12HR PO 05/11/25 10:00 05/12/25 22:07 3.125 MG Enteral Nutritional Formula 240 ml BIDWM PO 05/12/25 18:00 05/12/25 18:41 240 ML Doxycycline Hyclate 100 ml @ 50 mls/hr Q12H IV 05/12/25 10:15 05/12/25 22:07 50 MLS/HR Pantoprazole Sodium 40 mg DAILY IV 05/13/25 10:00 Gabapentin 300 mg TID PO 05/12/25 22:00 05/13/25 04:46 300 MG Laboratory Results Laboratory Tests 05/13/25 03:16 Chemistry Test 05/12/25 10:28 05/13/25 03:16 Calcium Level 8.6 mg/dL (8.7-10.4) L 8.9 mg/dL (8.7-10.4) Magnesium Level 1.6 mg/dL (1.6-2.6) 2.1 mg/dL (1.6-2.6) Urinalysis Test 05/12/25 22:40 Urine Color Yellow (Yellow) Urine Clarity Clear (Clear) Urine pH 6.0 (5.0-9.0) Urine Specific [place] 1.022 (1.001-1.035) Urine Protein Trace (Negative) H Urine Ketones Trace (Negative) Urine Blood Negative /uL (Negative) Urine Nitrite Negative (Negative) Urine Bilirubin Negative (Negative) Urine Urobilinogen Normal mg/dL (Negative) Urine Leukocyte Esterase Negative /uL (Negative) Urine RBC 1 /hpf (0 - 4) Urine Microscopic WBC 3 /HPF (0-5) Urine Squamous Epithelial Cells Few /hpf (<5) Urine Bacteria Few /hpf (None Seen) H Urine Hyaline Casts Few /lpf (0 - 2) Urine Mucus Few (None Seen) Urine Glucose Normal mg/dL (Normal) Blood Gas Results Test 05/12/25 07:55 Arterial Blood pH 7.488 (7.350-7.450) FiO2 % 70.0 Microbiology Microbiology Date/Time Source Procedure Growth Status 05/11/25 08:58 Blood Blood Culture - Preliminary NO GROWTH AFTER 24 HOURS OF INCUBATION. Resulted 05/11/25 08:48 Nose MRSA Screen - Final Complete Labs and/or images reviewed: Labs reviewed by me, Image(s) reviewed by me Assessment/Plan Assessment/Plan Impression: -Acute Hypoxic Respiratory Failure -CAP, Gram+/- etiology -Primary HTN -HFpEF 60% -Multifocal Atrial Tachycardia, ? PAF -Chronic back pain -Anxiety Disorder -NSTEMI II Plan: -Cardiology Consult -Echo reviewed -Continue Doxy and Cefepime -PAD,DVT prophylaxis -Continue Hi-Flow NC, titrate to keep saturation greater than 92% : currently 50% fio2 -Repeat labs and CXR in am -Unstable to transfer to [facility] Critical care time: 35min Plan discussed with: Patient, Other (RN) My Orders Orders - KATHY AGUILAR NP Procedure Category Date Status Time Basic Metabolic Panel LAB 05/14/25 Verified 04:00 Complete Blood Count LAB 05/14/25 Verified 04:00 Date of Service: May 13, 2025 Billing Provider: KATHY AGUILAR NP Common Visit Codes: [id number] CARE 30-74 MIN KATHY AGUILAR NP May 13, 2025 07:56
[2025-05-13 08:29] LABS: Base Excess 6.8 mmol/L (-2.0-3.0)
--- NOTE | 2025-05-13 09:08 | ECG ---
[facility] Test Date: 2025-05-13 Test Time: 06:10:40 Pat Name: CHELA HASKINS Department: ICU Room: 0278T Gender: F Alumni Relations Coordinator: Cristy REALB: 1935 Requested By: AARON CONNELL Order Number: [id number] Reading MD: Joe Valentin Measurements Intervals [place] Rate: 95 P: 32 [place]: 128 QRS: -59 QRSD: 90 T: 3 QT: 352 QTc: 443 Interpretive Statements Sinus tachycardia Supraventricular bigeminy Left anterior fascicular block Probable left ventricular hypertrophy Anterior Q waves, possibly due to LVH Borderline T abnormalities, inferior leads Electronically Signed On 05-19-2025 8:12:25 PST by Joe Valentin Please click the below link to view image of tracing.
[2025-05-13] MEDS: PANTOPRAZOLE 40 MG/10 ML VIAL INJ IV SCH (09:15)
--- NOTE | 2025-05-13 23:24 | DVHPN2 ---
Progress Note - Dictate Date Seen: May 13, 2025 Medical Necessity Reason Pt with a Central, PICC or Fol: No The following are medically ne: Gage Catheter Reason for gage catheter: Strict I&O Subjective Patient was seen and evaluated in follow up in the ICU. Patient is on 4 L Oxymizer. Patient complains of SOB. WBC 11, CO2 33. Chest x-ray shows diffuse pulmonary vascular congestion. vital signs Vital Sign Date Time Temp Pulse Resp B/P (MAP) Pulse Ox O2 Delivery O2 Flow Rate FiO2 05/13/25 11:59 93 [place]ymizer 4.0 05/13/25 11:59 N/A 05/13/25 11:00 92 24 127/65 (85) 05/13/25 08:00 98.5 98.5 Total Intake and Output 05/12/25 05/12/25 05/13/25 15:00 23:00 07:00 Intake Total 350 ml 370.0 ml 137.5 ml Output Total 1700 ml 375 ml 625 ml Balance -1350 ml -5.0 ml -487.5 ml medications Current Medications Medications Dose Ordered Sig/Ely Route Start Time Stop Time Status Last Admin Dose Admin Nitroglycerin 0.4 mg Q5MINP PRN SL 05/09/25 23:00 Morphine Sulfate 2 mg Q30M PRN IV 05/09/25 23:00 05/12/25 01:27 2 MG Ipratropium [place] 0.5 mg Q4HPRN PRN NEB 05/09/25 23:00 05/12/25 06:57 0.5 MG Enoxaparin Sodium 40 mg DAILY SC 05/10/25 10:00 05/13/25 09:14 40 MG Cefepime HCl 50 ml @ 12.5 mls/hr Q12H IV 05/10/25 05:45 05/13/25 04:46 12.5 MLS/HR Acetaminophen/ Hydrocodone Bitart 1 tab Q6HPRN PRN PO 05/10/25 15:45 05/12/25 12:30 1 TAB Furosemide 20 mg BIDD IV 05/10/25 18:00 05/13/25 04:45 20 MG Carvedilol 3.125 mg Q12HR PO 05/11/25 10:00 05/13/25 09:15 3.125 MG Enteral Nutritional Formula 240 ml BIDWM PO 05/12/25 18:00 05/13/25 08:00 240 ML Doxycycline Hyclate 100 ml @ 50 mls/hr Q12H IV 05/12/25 10:15 05/13/25 09:15 50 MLS/HR Pantoprazole Sodium 40 mg DAILY IV 05/13/25 10:00 05/13/25 09:15 40 MG Gabapentin 300 mg TID PO 05/12/25 22:00 05/13/25 04:46 300 MG objective GENERAL: Alert and oriented x 3. No acute distress. Thin appearing. EYES: PERRL, EOMI. Anicteric. HENT: Moist mucous membranes. LUNGS: Coarse bilateral breath sounds CARDIOVASCULAR: Regular rate and rhythm. ABDOMEN: Soft, nontender and nondistended. EXTREMITIES: No edema. NEUROLOGIC: No focal neurological deficits. SKIN: Warm, dry. laboratory and microbiology Laboratory Tests 05/13/25 03:16 Test 05/13/25 03:16 Range/Units Serum Glucose 105 74-106 mg/dL Problem List Sepsis with pneumonia. Acute hypoxic respiratory failure secondary to above. NSTEMI, likely type 2 secondary to above. Multifocal atrial tachycardia, now NSR. Rule out structural heart disease. Hypertension. Chronic lower back pain. Pilmonary HTN. Assessment/Plan Continued all current supportive medical care. Morphine and [place] for pain management. Coreg. IV antibiotics as ordered. DVT and GI prophylactics. Diuretics with Lasix. Nitro SL. Additional plan as per the hospital course. Critical care time of 45 minutes provided to include time spent evaluation of patient at bedside, when appropriate patient/family education for diagnosis, treatment plan, review of pertinent medical information and discussion of care with specialty providers and PCP. Dietary Evaluation Review Comments: Nutrition Recommendation: 1) Consider Ensure [place] TID if PO intake <50% 2) Monitor PO intake, lab values, weight trend, and I/O Expected Outcomes/Goals: Intake to meet >75% estimated needs FU 3-5 days Plan discussed with: Patient YVES CHACON MD May 13, 2025 12:35
[2025-05-14] VITALS (28 sets, daily range): BP systolic 119–155; BP diastolic 54–80; PULSE 91–107; RESP 13–39; TEMP 98.4–98.7; O2SAT 92–100
[2025-05-14 03:59] LABS: Hematocrit 31.8 % (36.0-46.0); Hemoglobin 10.5 g/dL (12.2-16.2); Mean Corpuscular Hemoglobin 29.2 pg (28.0-32.0); Mean Corpuscular Volume 89.0 fL (80.0-100.0); Nucleated Red Blood Cells % 0.0 %
[2025-05-14 04:10] LABS: Chloride 100 mmol/L (98-107); Potassium 4.0 mmol/L (3.5-5.1); Sodium 140 mmol/L (136-145)
[2025-05-14 04:11] LABS: Anion Gap 8 (5-15); Calcium 8.9 mg/dL (8.7-10.4)
[2025-05-14 04:16] LABS: Glucose 106 mg/dL (74-106)
[2025-05-14 04:17] LABS: BUN/Creatinine Ratio 23.0 (10.0-20.0); Blood Urea Nitrogen 14 mg/dL (9-23)
[2025-05-14 04:19] LABS: Carbon Dioxide 32 mmol/L (20-31)
--- NOTE | 2025-05-14 13:53 | DVHPN2 ---
Subjective The patient seen and examined at bedside. The patient more alert, awake, still on 4 L of oxygen and desat very easy. Reviewed: Care Plan, H&P, Labs, Medications Changes from previous H/P or p: No Changes General: Per HPI Eyes: No Pain, No Vision change, No Conjunctivae inflammation, No Eyelid inflammation, No Other, No Redness ENT: No Ear pain, No Ear discharge, No Nose pain, No Nose discharge, No Nose congestion, No Mouth pain, No Mouth swelling, No Throat pain, No Throat swelling, No Other Cardiovascular: No Chest Pain, No Palpitations, No Orthopnea, No Paroxysmal Noc. Dyspnea, No Edema, No Lt Headedness, No Other Respiratory: No Cough, No Dry; Shortness of breath; No SOB with excertion, No Wheezing, No Hemoptysis, No Pleuritic Pain, No Sputum, No Other Gastrointestinal: No Nausea, No Vomiting, No Abdominal Pain, No Diarrhea, No Constipation, No Melena, No Hematochezia, No Other Musculoskeletal: No other, No neck pain, No shoulder pain, No arm pain; back pain; No hand pain, No leg pain, No foot pain Skin: No Rash, No Lesions, No Jaundice, No Bruising, No Other Objective Vitals Vital Signs Date Time Temp Pulse Resp B/P (MAP) Pulse Ox O2 Delivery O2 Flow Rate FiO2 05/14/25 13:00 101 27 148/80 (102) 95 05/14/25 12:00 98.7 98.7 05/14/25 10:00 Nasal Cannula* 5 40 Intake/Output Intake and Output 05/14/25 06:59 Intake Total 1070.0 ml Output Total 1625 ml Balance -555.0 ml Intake Oral 770 ml IV Total 300.0 ml Output Urine Total 1625 ml General Appearance: Alert, Oriented X3, Cooperative, mild distress HEENT: Atraumatic, PERRLA Lungs: Clear to auscultation, Normal air movement, Other (Hi flow 50%, 50lpm) Cardiovascular: Normal S1, Normal S2 Abdomen: Normal bowel sounds, Soft, No tenderness, No hepatospenomegaly Genitourinary: No Apparent Abnormalities Skin: Intact Psych/Mental Status: Mental status NL, Mood NL Medications Current Medications Medications Dose Ordered Sig/Ely Route Start Time Stop Time Status Last Admin Dose Admin Nitroglycerin 0.4 mg Q5MINP PRN SL 05/09/25 23:00 Morphine Sulfate 2 mg Q30M PRN IV 05/09/25 23:00 05/12/25 01:27 2 MG Ipratropium [place] 0.5 mg Q4HPRN PRN NEB 05/09/25 23:00 05/12/25 06:57 0.5 MG Enoxaparin Sodium 40 mg DAILY SC 05/10/25 10:00 05/14/25 10:01 40 MG Cefepime HCl 50 ml @ 12.5 mls/hr Q12H IV 05/10/25 05:45 05/14/25 04:59 12.5 MLS/HR Acetaminophen/ Hydrocodone Bitart 1 tab Q6HPRN PRN PO 05/10/25 15:45 05/13/25 15:58 1 TAB Furosemide 20 mg BIDD IV 05/10/25 18:00 05/14/25 04:59 20 MG Carvedilol 3.125 mg Q12HR PO 05/11/25 10:00 05/14/25 10:01 3.125 MG Enteral Nutritional Formula 240 ml BIDWM PO 05/12/25 18:00 05/14/25 08:00 240 ML Doxycycline Hyclate 100 ml @ 50 mls/hr Q12H IV 05/12/25 10:15 05/14/25 10:01 50 MLS/HR Pantoprazole Sodium 40 mg DAILY IV 05/13/25 10:00 05/14/25 10:00 40 MG Gabapentin 300 mg TID PO 05/12/25 22:00 05/14/25 13:22 300 MG Laboratory Results Laboratory Tests 05/14/25 03:14 Chemistry Test 05/14/25 03:14 Calcium Level 8.9 mg/dL (8.7-10.4) Urinalysis Test 05/12/25 22:40 Urine Color Yellow (Yellow) Urine Clarity Clear (Clear) Urine pH 6.0 (5.0-9.0) Urine Specific [place] 1.022 (1.001-1.035) Urine Protein Trace (Negative) H Urine Ketones Trace (Negative) Urine Blood Negative /uL (Negative) Urine Nitrite Negative (Negative) Urine Bilirubin Negative (Negative) Urine Urobilinogen Normal mg/dL (Negative) Urine Leukocyte Esterase Negative /uL (Negative) Urine RBC 1 /hpf (0 - 4) Urine Microscopic WBC 3 /HPF (0-5) Urine Squamous Epithelial Cells Few /hpf (<5) Urine Bacteria Few /hpf (None Seen) H Urine Hyaline Casts Few /lpf (0 - 2) Urine Mucus Few (None Seen) Urine Glucose Normal mg/dL (Normal) Microbiology Microbiology Date/Time Source Procedure Growth Status 05/12/25 22:40 Voided Urine Urine Culture - Preliminary No growth Resulted 05/12/25 11:35 Nose MRSA Screen - Final Complete 05/11/25 08:58 Blood Blood Culture - Preliminary NO GROWTH AFTER 72 HOURS OF INCUBATION. Resulted Labs and/or images reviewed: Labs reviewed by me Assessment/Plan Assessment/Plan -Acute Hypoxic Respiratory Failure -CAP, Gram+/- etiology -Primary HTN -HFpEF 60% -Multifocal Atrial Tachycardia, ? PAF -Chronic back pain -Anxiety Disorder -NSTEMI II Plan: -Cardiology Consult -Echo reviewed -Continue Doxy and Cefepime -PAD,DVT prophylaxis -Continue oxymask: 4L -Unstable to transfer to [facility] Plan discussed with: Patient, Son Date of Service: May 14, 2025 Billing Provider: BREA MOONEY MD Common Visit Codes: [id number] INP/OBS CARE(HIGH) BREA MOONEY MD May 14, 2025 13:53
--- NOTE | 2025-05-14 23:02 | DVHPN2 ---
Progress Note - Dictate Date Seen: May 14, 2025 Medical Necessity Reason Pt with a Central, PICC or Fol: No The following are medically ne: Gage Catheter Reason for gage catheter: Strict I&O Subjective Patient was seen and evaluated in follow up in the ICU. Patient is now on 5 LPM NC. WBC 10.9, HCT 31.8, CO2 32. vital signs Vital Sign Date Time Temp Pulse Resp B/P (MAP) Pulse Ox O2 Delivery O2 Flow Rate FiO2 05/14/25 13:00 101 27 148/80 (102) 95 05/14/25 12:00 98.7 98.7 05/14/25 10:00 Nasal Cannula* 5 40 Total Intake and Output 05/13/25 05/13/25 05/14/25 15:00 23:00 07:00 Intake Total 372.5 ml 580.0 ml 117.5 ml Output Total 875 ml 750 ml Balance 372.5 ml -295.0 ml -632.5 ml medications Current Medications Medications Dose Ordered Sig/Ely Route Start Time Stop Time Status Last Admin Dose Admin Nitroglycerin 0.4 mg Q5MINP PRN SL 05/09/25 23:00 Morphine Sulfate 2 mg Q30M PRN IV 05/09/25 23:00 05/12/25 01:27 2 MG Ipratropium [place] 0.5 mg Q4HPRN PRN NEB 05/09/25 23:00 05/12/25 06:57 0.5 MG Enoxaparin Sodium 40 mg DAILY SC 05/10/25 10:00 05/14/25 10:01 40 MG Cefepime HCl 50 ml @ 12.5 mls/hr Q12H IV 05/10/25 05:45 05/14/25 04:59 12.5 MLS/HR Acetaminophen/ Hydrocodone Bitart 1 tab Q6HPRN PRN PO 05/10/25 15:45 05/13/25 15:58 1 TAB Furosemide 20 mg BIDD IV 05/10/25 18:00 05/14/25 04:59 20 MG Carvedilol 3.125 mg Q12HR PO 05/11/25 10:00 05/14/25 10:01 3.125 MG Enteral Nutritional Formula 240 ml BIDWM PO 05/12/25 18:00 05/14/25 08:00 240 ML Doxycycline Hyclate 100 ml @ 50 mls/hr Q12H IV 05/12/25 10:15 05/14/25 10:01 50 MLS/HR Pantoprazole Sodium 40 mg DAILY IV 05/13/25 10:00 05/14/25 10:00 40 MG Gabapentin 300 mg TID PO 05/12/25 22:00 05/14/25 04:59 300 MG objective GENERAL: Alert and oriented x 3. No acute distress. Thin appearing. EYES: PERRL, EOMI. Anicteric. HENT: Moist mucous membranes. LUNGS: Coarse bilateral breath sounds CARDIOVASCULAR: Regular rate and rhythm. ABDOMEN: Soft, nontender and nondistended. EXTREMITIES: No edema. NEUROLOGIC: No focal neurological deficits. SKIN: Warm, dry. laboratory and microbiology Laboratory Tests 05/14/25 03:14 Test 05/14/25 03:14 Range/Units Serum Glucose 106 74-106 mg/dL Problem List Sepsis with pneumonia. Acute hypoxic respiratory failure secondary to above. NSTEMI, likely type 2 secondary to above. Multifocal atrial tachycardia, now NSR. Rule out structural heart disease. Hypertension. Chronic lower back pain. Pilmonary HTN. Assessment/Plan Continued all current supportive medical care. Morphine and Zeigler for pain management. Coreg. IV antibiotics as ordered. DVT and GI prophylactics. Diuretics with Lasix. Nitro SL. Additional plan as per the hospital course. Critical care time of 45 minutes provided to include time spent evaluation of patient at bedside, when appropriate patient/family education for diagnosis, treatment plan, review of pertinent medical information and discussion of care with specialty providers and PCP. Dietary Evaluation Review Comments: Nutrition Recommendation: 1) Consider Ensure Enlive TID if PO intake <50% 2) Monitor PO intake, lab values, weight trend, and I/O Expected Outcomes/Goals: Intake to meet >75% estimated needs FU 3-5 days Plan discussed with: Patient YVES CHACON MD May 14, 2025 13:18
--- NOTE | 2025-05-14 23:33 | DVHINCON2 ---
Date of service: May 14, 2025 Referring Physician MADAY Wade Reason for Consultation Pneumonia, interstitial lung disease and acute hypoxic respiratory failure. History of Present Illness This is an 89-year-old woman with past medical history of hypertension, chronic back pain, depression, urinary incontinence, and recurrent UTI who presented to the ED on 05/09/25 with complaint of progressive shortness of breath x2 days p rior to admission. Per family, patient was having shortness of breath for the past 2 days, getting worse and on day of presentation, she was desaturating at 60% at home that prompted this visit. In the ED the patient was placed on non- rebreather 15 L that improved O2 sats to 99%. Pt denied fever, chills, cough, GI/ symptoms or other acute concerns. Patient is unstable for transfer to [place] Patient was admitted for further care. Pulmonary consultation is requested for evaluation and management of pneumonia, interstitial lung disease and acute hypoxic respiratory failure. Review of Systems: 14-point review of systems negative unless otherwise noted above.: Past Medical History Chronic back pain, depression, urinary incontinence, recurrent UTI Past Surgical History Stomach surgery 6 years ago Medications: Reviewed. Allergies: No known drug allergies. Family History: No family history of premature CAD. No family history of lung disorders. Social History: Nonsmoker. No alcohol or illicit drug use. Family History: Patient reports no known family medical history. Allergies: Coded Allergies: NO KNOWN ALLERGIES (Unverified , 05/09/25) Home Meds Reported Medications Aripiprazole (Abilify Mycite Maintenanc) 5 Mg Tab, 1 TAB PO DAILY for 100 Days, #100 05/11/25 Amlodipine Besylate (Amlodipine Besylate) 10 Mg Tab, 1 TAB PO DAILY for 100 Days, #100 05/11/25 Pantoprazole Sodium Sesquihydr (Pantoprazole Sodium) 40 Mg Tab, 20 MG PO BID for 50 Days, #100 05/11/25 Hydrocodone-Acetaminophen (Hydrocodone Bitartrate/AC 10-325 mg) 1 Tab Tab, 1 TAB PO QID PRN for PAIN for 120 Days, #30 05/11/25 Gabapentin (Gabapentin) 300 Mg Cap, 1 CAP PO TID for 100 Days, #300 05/11/25 Desvenlafaxine Succinate (Desvenlafaxine ER) 100 Mg Tab, 1 TAB PO DAILY for 30 Days, #30 05/11/25 Vital Signs Vital Signs Date Time Temp Pulse Resp B/P (MAP) Pulse Ox O2 Delivery O2 Flow Rate FiO2 05/14/25 22:00 97 05/14/25 22:00 26 96 Nasal Cannula* 5 40 05/14/25 22:00 138/66 (90) 05/14/25 19:19 98.7 98.7 Physical Exam Gen.: Patient lying in bed in no apparent distress. On supplemental oxygen. Head: Normocephalic, atraumatic. Eyes: EOMI/PERRLA. Ears: Normal hearing. Normal anatomy. Neck/trachea: Trachea midline, supple. Nose: Normal external anatomy. Mouth: Moist mucous membranes. Chest: Decreased air entry bilaterally. No wheezing or rhonchi. Cardiovascular: Positive S1, positive S2. Regular rate and rhythm. Abdomen: Positive bowel sounds in all 4 quadrants. Soft, non-tender, non- distended. : Deferred. Rectal: Deferred. Skin: Warm, dry. Intact. Extremities: 2+ radial pulses bilaterally. No lower extremity edema. Neuro: Awake, alert, oriented x3. No gross motor or sensory deficits. Cranial nerves II through XII intact. Gait not assessed. Labs/Diagnostic Data Labs Test 05/14/25 03:14 05/13/25 07:08 05/13/25 03:16 05/12/25 22:40 Range/Units White Blood Count 10.9 H 4.4-10.8 10^3/uL Red Blood Count 3.58 L 4.0-5.20 10^6/uL Hemoglobin 10.5 L 12.2-16.2 g/dL Hematocrit 31.8 L 36.0-46.0 % Mean Corpuscular Volume 89.0 80.0-100.0 fL Mean Corpuscular Hemoglobin 29.2 28.0-32.0 pg Mean Corpuscular Hemoglobin Concent 32.8 32.0-36.0 g/dL Red Cell Distribution Width 15.6 H 11.8-14.3 % Platelet Count 358 140-450 10^3/uL Mean Platelet Volume 7.2 6.9-10.8 fL Neutrophils (%) (Auto) 79.5 37.0-80.0 % Lymphocytes (%) (Auto) 11.2 10.0-50.0 % Monocytes (%) (Auto) 5.3 0.0-12.0 % Eosinophils (%) (Auto) 3.7 0.0-7.0 % Basophils (%) (Auto) 0.3 0.0-2.0 % Neutrophils # (Auto) 8.7 H 1.6-8.6 10 ^3/uL Lymphocytes # (Auto) 1.2 0.4-5.4 10 ^3/uL Monocytes # (Auto) 0.6 0-1.3 10 ^3/uL Eosinophils # (Auto) 0.4 0-0.8 10 ^3/uL Basophils # (Auto) 0 0-0.2 10 ^3/uL Nucleated Red Blood Cells 0.0 % Sodium Level 140 136-145 mmol/L Potassium Level 4.0 3.5-5.1 mmol/L Chloride Level 100 98-107 mmol/L Carbon Dioxide Level 32 H 20-31 mmol/L Anion Gap 8 5-15 Blood Urea Nitrogen 14 9-23 mg/dL Creatinine 0.61 0.550-1.02 mg/dL Glomerular Filtration Rate Calc 86 >90 mL/min BUN/Creatinine Ratio 23.0 H 10.0-20.0 Serum Glucose 106 74-106 mg/dL Calcium Level 8.9 8.7-10.4 mg/dL Blood Gas Specimen Type Arterial Blood Gas Sample Site Right radial Blood Gas Patient Temperature 37.0 Arterial Blood Date Drawn [id number] Arterial Blood pH 7.476 H 7.350-7.450 Arterial Blood Partial Pressure CO2 43.1 32.0-45.0 mmHg Arterial Blood Partial Pressure O2 80.3 L 83.0-108.0 mmHg Arterial Blood HCO3 31.1 H 21.0-28.0 mmol/L Arterial Blood Oxygen Saturation 95.8 94.0-98.0 % Arterial Blood Base Excess 6.8 H -2.0-3.0 mmol/L Arterial Blood Oxyhemoglobin 94.5 94.0-98.0 % Arterial Blood Carboxyhemoglobin 1.1 0.5-1.5 % Arterial Blood Methemoglobin 0.3 0.0-1.5 % Arterial Blood Deoxyhemoglobin 4.1 0.0-5.0 % Ancelmo Test Yes Blood Gas Total Hemoglobin 12.40 12.0-16.0 g/dL Blood Gas Liter Flow 50.00 Blood Gas Modality High flow FiO2 % 60.0 Magnesium Level 2.1 1.6-2.6 mg/dL Urine Color Yellow Yellow Urine Clarity Clear Clear Urine pH 6.0 5.0-9.0 Urine Specific [place] 1.022 1.001-1.035 Urine Protein Trace H Negative Urine Ketones Trace Negative Urine Blood Negative Negative /uL Urine Nitrite Negative Negative Urine Bilirubin Negative Negative Urine Urobilinogen Normal Negative mg/dL Urine Leukocyte Esterase Negative Negative /uL Urine RBC 1 0 - 4 /hpf Urine Microscopic WBC 3 0-5 /HPF Urine Squamous Epithelial Cells Few <5 /hpf Urine Bacteria Few H None Seen /hpf Urine Hyaline Casts Few 0 - 2 /lpf Urine Mucus Few None Seen Urine Glucose Normal Normal mg/dL Test 05/11/25 06:08 05/11/25 06:05 05/10/25 19:29 05/10/25 01:00 Range/Units Total Bilirubin 0.6 0.2-1.0 mg/dL Aspartate Amino Transferase (AST) 52 H 13-40 U/L Alanine Aminotransferase (ALT) 15 7-40 U/L Alkaline Phosphatase 163 H 46-116 U/L B-Type Natriuretic Peptide 292.82 0-100 pg/mL Total Protein 6.8 5.7-8.2 g/dL Albumin 3.7 3.2-4.8 g/dL Thyroid Stimulating Hormone (TSH) 1.20 0.55-4.78 uIU/mL Blood Gas Spontaneous Rate 28 Influenza Type A Antigen Negative Negative Influenza Type B Antigen Negative Negative SARS-CoV-2 Antigen (Rapid) Negative NEGATIVE Test 05/10/25 00:00 05/09/25 23:57 05/09/25 21:16 Range/Units Troponin I High Sensitivity 95 *H </=34 ng/L Lactic Acid Level 1.5 0.4-2.0 mmol/L D-Dimer, Quantitative 3.03 H 0.0-0.49 mg/L FEU Microbiology Date/Time Source Procedure Growth Status 05/12/25 22:40 Voided Urine Urine Culture - Preliminary No growth Resulted 05/12/25 11:35 Nose MRSA Screen - Final Complete 05/11/25 08:58 Blood Blood Culture - Preliminary NO GROWTH AFTER 72 HOURS OF INCUBATION. Resulted Assessment Impression: Acute hypoxic respiratory failure Dependence on supplemental oxygen Pulmonary hypertension, mild Pneumonia, likely gram negative Pleural effusion Atelectasis Sepsis Interstitial lung disease Acute on chronic CHF Plan: Supplemental oxygen Titrate to keep O2 sats above 92%. Currently on 5 LPM NC Taper O2 as tolerated Chest x-ray reviewed, notable for diffuse pulmonary vascular congestion. Head of bed elevation Aspiration precautions Follow up Cardiology recommendations. Bronchodilators PRN. Continue antibiotics Follow up cultures Incentive spirometry Diurese with Lasix as tolerated Monitor renal function. Monitor electrolytes. Supplement as necessary. Monitor ins and outs. DVT prophylaxis. Prognosis: Poor given patient's multiple co-morbidities. Rest of plan per hospitalist and other consultants. Thank you, MADAY Wade, for allowing me to participate in this patient's care. Further recommendations will depend on the patient's clinical course. Please do not hesitate to contact me if you have any questions or concerns. This medical document was created using an electronic medical record system with [employer] dictation system. Although these documentations are being ca refully reviewed, there may still be some phonetic and typographical changes. The errors are purely typographical, due to imperfection on the software program, and do not reflect any compromise in the patient's medical care. Plan discussed with: Other (MAGALY Cuello/) Visit Coding Pulmonary Billing Provider: VIVIANE ANGUIANO MD Date of Service if different f: May 14, 2025 Common Visit Codes: [id number] INP/OBS CARE (HIGH) VIVIANE ANGUIANO MD May 14, 2025 23:33
[2025-05-15] VITALS (31 sets, daily range): BP systolic 110–150; BP diastolic 37–68; PULSE 89–110; RESP 16–33; TEMP 98–98.7; O2SAT 94–100
[2025-05-15 04:43] LABS: Hematocrit 34.2 % (36.0-46.0); Hemoglobin 10.9 g/dL (12.2-16.2); Mean Corpuscular Hemoglobin 29.2 pg (28.0-32.0); Mean Corpuscular Volume 91.7 fL (80.0-100.0); Nucleated Red Blood Cells % 0.1 %
[2025-05-15 05:05] LABS: Anion Gap 8 (5-15); BUN/Creatinine Ratio 40.4 (10.0-20.0); Blood Urea Nitrogen 21 mg/dL (9-23); Calcium 9.0 mg/dL (8.7-10.4); Chloride 99 mmol/L (98-107); Glucose 97 mg/dL (74-106); Magnesium 1.8 mg/dL (1.6-2.6); Potassium 4.4 mmol/L (3.5-5.1); Sodium 140 mmol/L (136-145)
[2025-05-15 05:06] LABS: Alanine Aminotransferase 41 U/L (7-40); Albumin 2.9 g/dL (3.2-4.8); Alkaline Phosphatase 182 U/L (46-116); Bilirubin, Total 0.3 mg/dL (0.2-1.0); Carbon Dioxide 33 mmol/L (20-31); Total Protein 5.4 g/dL (5.7-8.2)
--- NOTE | 2025-05-15 06:48 | DVH ---
INDICATION: PNA TECHNIQUE: Single frontal view of the chest was obtained COMPARISON: XY CHEST PORTABLE on DOS: 05/13/25, XY CHEST PORTABLE on DOS: 05/11/25, XY CHEST PORTABLE on DOS: 05/09/25, XY CHEST PORTABLE on DOS: 05/13/25 FINDINGS: Lines and Tubes: None Lungs: Diffuse pulmonary vascular congestion. Pleura: No effusion.No pneumothorax. Cardiomediastinal contours: Unremarkable Bones: Unremarkable IMPRESSION: Diffuse pulmonary vascular congestion.
--- NOTE | 2025-05-15 12:42 | DVHPN2 ---
Subjective The patient seen and examined at bedside. The patient more alert, awake, still on 3 L of oxygen and desat very easy. Reviewed: Care Plan, H&P, Labs, Medications Changes from previous H/P or p: No Changes General: Per HPI Eyes: No Pain, No Vision change, No Conjunctivae inflammation, No Eyelid inflammation, No Other, No Redness ENT: No Ear pain, No Ear discharge, No Nose pain, No Nose discharge, No Nose congestion, No Mouth pain, No Mouth swelling, No Throat pain, No Throat swelling, No Other Cardiovascular: No Chest Pain, No Palpitations, No Orthopnea, No Paroxysmal Noc. Dyspnea, No Edema, No Lt Headedness, No Other Respiratory: No Cough, No Dry; Shortness of breath; No SOB with excertion, No Wheezing, No Hemoptysis, No Pleuritic Pain, No Sputum, No Other Gastrointestinal: No Nausea, No Vomiting, No Abdominal Pain, No Diarrhea, No Constipation, No Melena, No Hematochezia, No Other Musculoskeletal: No other, No neck pain, No shoulder pain, No arm pain; back pain; No hand pain, No leg pain, No foot pain Skin: No Rash, No Lesions, No Jaundice, No Bruising, No Other Objective Vitals Vital Signs Date Time Temp Pulse Resp B/P (MAP) Pulse Ox O2 Delivery O2 Flow Rate FiO2 05/15/25 12:01 98.6 94 23 114/55 (74) 99 98.6 05/15/25 10:31 Nasal Cannula* 3 32 Intake/Output Intake and Output 05/15/25 07:00 Intake Total 1387.5 ml Output Total 2200 ml Balance -812.5 ml Intake Oral 1100 ml IV Total 287.5 ml Output Urine Total 2200 ml # Bowel Movements 1 General Appearance: Alert, Oriented X3, Cooperative, mild distress HEENT: Atraumatic, PERRLA Lungs: Clear to auscultation, Normal air movement, Other (Hi flow 50%, 50lpm) Cardiovascular: Normal S1, Normal S2 Abdomen: Normal bowel sounds, Soft, No tenderness, No hepatospenomegaly Genitourinary: No Apparent Abnormalities Skin: Intact Psych/Mental Status: Mental status NL, Mood NL Medications Current Medications Medications Dose Ordered Sig/[place] Route Start Time Stop Time Status Last Admin Dose Admin Nitroglycerin 0.4 mg Q5MINP PRN SL 05/09/25 23:00 Morphine Sulfate 2 mg Q30M PRN IV 05/09/25 23:00 05/12/25 01:27 2 MG Ipratropium [place] 0.5 mg Q4HPRN PRN NEB 05/09/25 23:00 05/12/25 06:57 0.5 MG Enoxaparin Sodium 40 mg DAILY SC 05/10/25 10:00 05/15/25 09:41 40 MG Cefepime HCl 50 ml @ 12.5 mls/hr Q12H IV 05/10/25 05:45 05/15/25 05:48 12.5 MLS/HR Acetaminophen/ Hydrocodone Bitart 1 tab Q6HPRN PRN PO 05/10/25 15:45 05/15/25 10:37 1 TAB Furosemide 20 mg BIDD IV 05/10/25 18:00 05/15/25 05:47 20 MG Carvedilol 3.125 mg Q12HR PO 05/11/25 10:00 05/15/25 09:41 3.125 MG Enteral Nutritional Formula 240 ml BIDWM PO 05/12/25 18:00 05/15/25 08:00 240 ML Doxycycline Hyclate 100 ml @ 50 mls/hr Q12H IV 05/12/25 10:15 05/15/25 09:41 50 MLS/HR Pantoprazole Sodium 40 mg DAILY IV 05/13/25 10:00 05/15/25 09:41 40 MG Gabapentin 300 mg TID PO 05/12/25 22:00 05/15/25 05:48 300 MG Laboratory Results Laboratory Tests 05/15/25 04:10 Chemistry Test 05/15/25 04:10 Albumin 2.9 g/dL (3.2-4.8) L Calcium Level 9.0 mg/dL (8.7-10.4) Magnesium Level 1.8 mg/dL (1.6-2.6) Total Protein 5.4 g/dL (5.7-8.2) L LFT Test 05/15/25 04:10 Alanine Aminotransferase (ALT) 41 U/L (7-40) H Alkaline Phosphatase 182 U/L (46-116) H Aspartate Amino Transferase (AST) 93 U/L (13-40) H Total Bilirubin 0.3 mg/dL (0.2-1.0) Urinalysis Test 05/12/25 22:40 Urine Color Yellow (Yellow) Urine Clarity Clear (Clear) Urine pH 6.0 (5.0-9.0) Urine Specific [place] 1.022 (1.001-1.035) Urine Protein Trace (Negative) H Urine Ketones Trace (Negative) Urine Blood Negative /uL (Negative) Urine Nitrite Negative (Negative) Urine Bilirubin Negative (Negative) Urine Urobilinogen Normal mg/dL (Negative) Urine Leukocyte Esterase Negative /uL (Negative) Urine RBC 1 /hpf (0 - 4) Urine Microscopic WBC 3 /HPF (0-5) Urine Squamous Epithelial Cells Few /hpf (<5) Urine Bacteria Few /hpf (None Seen) H Urine Hyaline Casts Few /lpf (0 - 2) Urine Mucus Few (None Seen) Urine Glucose Normal mg/dL (Normal) Microbiology Microbiology Date/Time Source Procedure Growth Status 05/12/25 22:40 Voided Urine Urine Culture - Final Complete 05/12/25 11:35 Nose MRSA Screen - Final Complete 05/11/25 08:58 Blood Blood Culture - Preliminary NO GROWTH AFTER 72 HOURS OF INCUBATION. Resulted Labs and/or images reviewed: Labs reviewed by me Assessment/Plan Assessment/Plan -Acute Hypoxic Respiratory Failure -CAP, Gram+/- etiology -Primary HTN -HFpEF 60% -Multifocal Atrial Tachycardia, ? PAF -Chronic back pain -Anxiety Disorder -NSTEMI II Plan: -Cardiology Consult -Echo reviewed -Continue Doxy and Cefepime -PAD,DVT prophylaxis -Continue oxymask: 4L -Unstable to transfer to [facility] Plan discussed with: Patient My Orders Orders - BREA MOONEY MD Procedure Category Date Status Time Chest Portable XY 05/15/25 Resulted 04:00 Date of Service: May 15, 2025 Billing Provider: BREA MOONEY MD Common Visit Codes: [id number] INP/OBS CARE(HIGH) BREA MOONEY MD May 15, 2025 12:42
--- NOTE | 2025-05-15 19:36 | DVHPN2 ---
Progress Note - Dictate Date Seen: May 15, 2025 Medical Necessity Reason Pt with a Central, PICC or Fol: No The following are medically ne: Gage Catheter Reason for gage catheter: Strict I&O Subjective Patient was seen and evaluated in follow up in the ICU. Patient's O2 was decreased to 4 LPM NC. HCT 34.2, CO2 33, AST 93, ALT 41. Chest x-ray showed diffuse pulmonary vascular congestion. vital signs Vital Sign Date Time Temp Pulse Resp B/P (MAP) Pulse Ox O2 Delivery O2 Flow Rate FiO2 05/15/25 13:00 93 22 126/57 (80) 100 05/15/25 12:01 98.6 98.6 05/15/25 12:00 Nasal Cannula* 4 36 Total Intake and Output 05/14/25 05/14/25 05/15/25 15:00 23:00 07:00 Intake Total 352.5 ml 710.0 ml 325.0 ml Output Total 1200 ml 1000 ml Balance 352.5 ml -490.0 ml -675.0 ml medications Current Medications Medications Dose Ordered Sig/Ely Route Start Time Stop Time Status Last Admin Dose Admin Nitroglycerin 0.4 mg Q5MINP PRN SL 05/09/25 23:00 Morphine Sulfate 2 mg Q30M PRN IV 05/09/25 23:00 05/12/25 01:27 2 MG Ipratropium [place] 0.5 mg Q4HPRN PRN NEB 05/09/25 23:00 05/12/25 06:57 0.5 MG Enoxaparin Sodium 40 mg DAILY SC 05/10/25 10:00 05/15/25 09:41 40 MG Cefepime HCl 50 ml @ 12.5 mls/hr Q12H IV 05/10/25 05:45 05/15/25 05:48 12.5 MLS/HR Acetaminophen/ Hydrocodone Bitart 1 tab Q6HPRN PRN PO 05/10/25 15:45 05/15/25 10:37 1 TAB Furosemide 20 mg BIDD IV 05/10/25 18:00 05/15/25 05:47 20 MG Carvedilol 3.125 mg Q12HR PO 05/11/25 10:00 05/15/25 09:41 3.125 MG Enteral Nutritional Formula 240 ml BIDWM PO 05/12/25 18:00 05/15/25 08:00 240 ML Doxycycline Hyclate 100 ml @ 50 mls/hr Q12H IV 05/12/25 10:15 05/15/25 09:41 50 MLS/HR Pantoprazole Sodium 40 mg DAILY IV 05/13/25 10:00 05/15/25 09:41 40 MG Gabapentin 300 mg TID PO 05/12/25 22:00 05/15/25 05:48 300 MG objective GENERAL: Alert and oriented x 3. No acute distress. Thin appearing. EYES: PERRL, EOMI. Anicteric. HENT: Moist mucous membranes. LUNGS: Coarse bilateral breath sounds CARDIOVASCULAR: Regular rate and rhythm. ABDOMEN: Soft, nontender and nondistended. EXTREMITIES: No edema. NEUROLOGIC: No focal neurological deficits. SKIN: Warm, dry. laboratory and microbiology Laboratory Tests 05/15/25 04:10 Test 05/15/25 04:10 Range/Units Serum Glucose 97 74-106 mg/dL Problem List Sepsis with pneumonia. Acute hypoxic respiratory failure secondary to above. NSTEMI, likely type 2 secondary to above. Multifocal atrial tachycardia, now NSR. Rule out structural heart disease. Hypertension. Chronic lower back pain. Pilmonary HTN. Assessment/Plan Continued all current supportive medical care. Morphine and [place] for pain management. Coreg. IV antibiotics as ordered. DVT and GI prophylactics. Diuretics with Lasix. Nitro SL. Additional plan as per the hospital course. Critical care time of 45 minutes provided to include time spent evaluation of patient at bedside, when appropriate patient/family education for diagnosis, treatment plan, review of pertinent medical information and discussion of care with specialty providers and PCP. Dietary Evaluation Review Comments: Nutrition Recommendation: 1) Consider Ensure Enlive TID if PO intake <50% 2) Monitor PO intake, lab values, weight trend, and I/O Expected Outcomes/Goals: Intake to meet >75% estimated needs FU 3-5 days Plan discussed with: Patient YVES CHACON MD May 15, 2025 13:26
--- NOTE | 2025-05-15 23:49 | DVHPN2 ---
Subjective DOS: 05/15/2025 Patient seen and examined at bedside. Remains on supplemental oxygen Overnight events reviewed. Reviewed: Care Plan, H&P, Labs, Medications Changes from previous H/P or p: No Changes General: Per HPI Eyes: No Pain, No Vision change, No Conjunctivae inflammation, No Eyelid inflammation, No Other, No Redness ENT: No Ear pain, No Ear discharge, No Nose pain, No Nose discharge, No Nose congestion, No Mouth pain, No Mouth swelling, No Throat pain, No Throat swelling, No Other Cardiovascular: No Chest Pain, No Palpitations, No Orthopnea, No Paroxysmal Noc. Dyspnea, No Edema, No Lt Headedness, No Other Respiratory: No Cough, No Dry; Shortness of breath; No SOB with excertion, No Wheezing, No Hemoptysis, No Pleuritic Pain, No Sputum, No Other Gastrointestinal: No Nausea, No Vomiting, No Abdominal Pain, No Diarrhea, No Constipation, No Melena, No Hematochezia, No Other Musculoskeletal: No other, No neck pain, No shoulder pain, No arm pain; back pain; No hand pain, No leg pain, No foot pain Skin: No Rash, No Lesions, No Jaundice, No Bruising, No Other Objective Vitals Vital Signs Date Time Temp Pulse Resp B/P (MAP) Pulse Ox O2 Delivery O2 Flow Rate FiO2 05/15/25 22:49 102 139/65 05/15/25 21:11 18 97 3.0 05/15/25 20:03 Nasal Cannula* 32 05/15/25 16:00 98.7 98.7 Intake/Output Intake and Output 05/15/25 07:00 Intake Total 1387.5 ml Output Total 2200 ml Balance -812.5 ml Intake Oral 1100 ml IV Total 287.5 ml Output Urine Total 2200 ml # Bowel Movements 1 Exam Gen.: Patient lying in bed in no apparent distress. On supplemental oxygen. Head: Normocephalic, atraumatic. Eyes: EOMI/PERRLA. Ears: Normal hearing. Normal anatomy. Neck/trachea: Trachea midline, supple. Nose: Normal external anatomy. Mouth: Moist mucous membranes. Chest: Decreased air entry bilaterally. No wheezing or rhonchi. Cardiovascular: Positive S1, positive S2. Regular rate and rhythm. Abdomen: Positive bowel sounds in all 4 quadrants. Soft, non-tender, non- distended. : Deferred. Rectal: Deferred. Skin: Warm, dry. Intact. Extremities: 2+ radial pulses bilaterally. No lower extremity edema. Neuro: Awake, alert, oriented x3. No gross motor or sensory deficits. Cranial nerves II through XII intact. Gait not assessed. General Appearance: Alert, Oriented X3, Cooperative, mild distress HEENT: Atraumatic, PERRLA Lungs: Clear to auscultation, Normal air movement, Other (Hi flow 50%, 50lpm) Cardiovascular: Normal S1, Normal S2 Abdomen: Normal bowel sounds, Soft, No tenderness, No hepatospenomegaly Genitourinary: No Apparent Abnormalities Skin: Intact Psych/Mental Status: Mental status NL, Mood NL Medications Current Medications Medications Dose Ordered Sig/Ely Route Start Time Stop Time Status Last Admin Dose Admin Nitroglycerin 0.4 mg Q5MINP PRN SL 05/09/25 23:00 Morphine Sulfate 2 mg Q30M PRN IV 05/09/25 23:00 05/12/25 01:27 2 MG Ipratropium [place] 0.5 mg Q4HPRN PRN NEB 05/09/25 23:00 05/12/25 06:57 0.5 MG Enoxaparin Sodium 40 mg DAILY SC 05/10/25 10:00 05/15/25 09:41 40 MG Cefepime HCl 50 ml @ 12.5 mls/hr Q12H IV 05/10/25 05:45 05/15/25 17:12 12.5 MLS/HR Acetaminophen/ Hydrocodone Bitart 1 tab Q6HPRN PRN PO 05/10/25 15:45 05/15/25 23:16 1 TAB Furosemide 20 mg BIDD IV 05/10/25 18:00 05/15/25 17:14 20 MG Carvedilol 3.125 mg Q12HR PO 05/11/25 10:00 05/15/25 21:49 3.125 MG Enteral Nutritional Formula 240 ml BIDWM PO 05/12/25 18:00 05/15/25 17:14 240 ML Doxycycline Hyclate 100 ml @ 50 mls/hr Q12H IV 05/12/25 10:15 05/15/25 21:51 50 MLS/HR Pantoprazole Sodium 40 mg DAILY IV 05/13/25 10:00 05/15/25 09:41 40 MG Gabapentin 300 mg TID PO 05/12/25 22:00 05/15/25 21:48 300 MG Laboratory Results Laboratory Tests 05/15/25 04:10 Chemistry Test 05/15/25 04:10 Albumin 2.9 g/dL (3.2-4.8) L Calcium Level 9.0 mg/dL (8.7-10.4) Magnesium Level 1.8 mg/dL (1.6-2.6) Total Protein 5.4 g/dL (5.7-8.2) L LFT Test 05/15/25 04:10 Alanine Aminotransferase (ALT) 41 U/L (7-40) H Alkaline Phosphatase 182 U/L (46-116) H Aspartate Amino Transferase (AST) 93 U/L (13-40) H Total Bilirubin 0.3 mg/dL (0.2-1.0) Urinalysis Test 05/12/25 22:40 Urine Color Yellow (Yellow) Urine Clarity Clear (Clear) Urine pH 6.0 (5.0-9.0) Urine Specific [place] 1.022 (1.001-1.035) Urine Protein Trace (Negative) H Urine Ketones Trace (Negative) Urine Blood Negative /uL (Negative) Urine Nitrite Negative (Negative) Urine Bilirubin Negative (Negative) Urine Urobilinogen Normal mg/dL (Negative) Urine Leukocyte Esterase Negative /uL (Negative) Urine RBC 1 /hpf (0 - 4) Urine Microscopic WBC 3 /HPF (0-5) Urine Squamous Epithelial Cells Few /hpf (<5) Urine Bacteria Few /hpf (None Seen) H Urine Hyaline Casts Few /lpf (0 - 2) Urine Mucus Few (None Seen) Urine Glucose Normal mg/dL (Normal) Microbiology Microbiology Date/Time Source Procedure Growth Status 05/12/25 22:40 Voided Urine Urine Culture - Final Complete 05/12/25 11:35 Nose MRSA Screen - Final Complete 05/11/25 08:58 Blood Blood Culture - Preliminary NO GROWTH AFTER 72 HOURS OF INCUBATION. Resulted Assessment/Plan Assessment/Plan Impression: Acute hypoxic respiratory failure Dependence on supplemental oxygen Pulmonary hypertension, mild Pneumonia, likely gram negative Pleural effusion Atelectasis Sepsis Interstitial lung disease Acute on chronic CHF Events: Remains on supplemental oxygen On 5 LPM --> 3 LPM NC Taper O2 as tolerated; improved O2 requirements. No acute overnight events. Chest x-ray reviewed, notable for diffuse pulmonary vascular congestion. Continue antibiotics Incentive spirometry Tolerating PO diet. Labs and imaging reviewed. Rest of plan as noted below. Plan: Supplemental oxygen Titrate to keep O2 sats above 92%. Head of bed elevation Aspiration precautions Follow up Cardiology recommendations. Bronchodilators PRN. Continue antibiotics Follow up cultures Incentive spirometry Diurese with Lasix as tolerated Monitor renal function. Monitor electrolytes. Supplement as necessary. Monitor ins and outs. DVT prophylaxis. Prognosis: Guarded given patient's multiple co-morbidities. Rest of plan per hospitalist and other consultants. Thank you, MADAY Wade, for allowing me to participate in this patient's care. Further recommendations will depend on the patient's clinical course. Please do not hesitate to contact me if you have any questions or concerns. This medical document was created using an electronic medical record system with [employer] dictation system. Although these documentations are being carefully reviewed, there may still be some phonetic and typographical changes. The errors are purely typographical, due to imperfection on the software program, and do not reflect any compromise in the patient's medical care. Plan discussed with: Patient, Other (MAGALY Cuello) Visit Coding Pulmonary Billing Provider: VIVIANE ANGUIANO MD Date of Service if different f: May 15, 2025 Common Visit Codes: [id number] INP/OBS CARE(HIGH) VIVIANE ANGUIANO MD May 15, 2025 23:49
[2025-05-16] VITALS (23 sets, daily range): BP systolic 102–131; BP diastolic 44–67; PULSE 58–110; RESP 17–27; TEMP 98.1–99.5; O2SAT 92–100
[2025-05-16 04:37] LABS: Hematocrit 32.0 % (36.0-46.0); Hemoglobin 10.3 g/dL (12.2-16.2); Mean Corpuscular Hemoglobin 28.7 pg (28.0-32.0); Mean Corpuscular Volume 88.9 fL (80.0-100.0); Nucleated Red Blood Cells % 0.1 %
[2025-05-16 05:16] LABS: Alanine Aminotransferase 46 U/L (7-40); Albumin 3.1 g/dL (3.2-4.8); Alkaline Phosphatase 190 U/L (46-116); Anion Gap 7 (5-15); BUN/Creatinine Ratio 30.5 (10.0-20.0); Blood Urea Nitrogen 18 mg/dL (9-23); Calcium 9.3 mg/dL (8.7-10.4); Carbon Dioxide 32 mmol/L (20-31); Chloride 97 mmol/L (98-107); Glucose 104 mg/dL (74-106); Magnesium 1.9 mg/dL (1.6-2.6); Potassium 4.2 mmol/L (3.5-5.1); Sodium 136 mmol/L (136-145); Total Protein 6.1 g/dL (5.7-8.2)
[2025-05-16 05:17] LABS: Bilirubin, Total 0.3 mg/dL (0.2-1.0)
--- NOTE | 2025-05-16 05:26 | DVH ---
CHEST RADIOGRAPH Indication: PNA Technique: Single frontal view of the chest was obtained COMPARISON: XY CHEST PORTABLE on DOS: 05/15/25, XY CHEST PORTABLE on DOS: 05/13/25, XY CHEST PORTABLE on DOS: 05/11/25, XY CHEST PORTABLE on DOS: 05/09/25 FINDINGS: Lines and Tubes: None Lungs: Increased diffuse multifocal airspace disease. Pleura: Small left pleural effusion. pneumothorax. Cardiomediastinal contours: Cardiomegaly. Bones: Scoliosis. Degenerative changes of the spine. IMPRESSION: Increased diffuse multifocal airspace disease.
[2025-05-16] MEDS ORDERED: CEFEPIME 2GM/50ML NS 50 ML IV SCH (13:23)
--- NOTE | 2025-05-16 17:53 | DVHPNRES ---
Progress Note Date Seen: May 16, 2025 Resident Creating Document: NEIL VELAZQUEZ RESIDENT Medical Necessity Reason Pt with a Central, PICC or Fol: No The following are medically ne: Gage Catheter Reason for gage catheter: Strict I&O Subjective Review of Systems This is 89-year-old female with past medical history of hypertension, chronic back pain, depression, urinary incontinence, recurrent UTI presented to the ED with a chief complaint of progressive shortness of breath for last 2 days prior to this admission. According to the family the patient was having shortness of breath for last 2 days getting worse and today she was desaturating at 60% in home that prompted the visit to the ER. In the ED the patient was on non- rebreather 15 L that improved the oxygen saturation to 99%. She denied fever, chills, cough with the phlegm, recent positive sick contact, recent traveling, dysuria, hematuria or any altered bowel habit. Past medical history: chronic back pain, depression, urinary incontinence, recurrent UTI, Basal cell carcinoma of scalp Past surgical history: Stomach surgery 6 years ago. Basal cell carcinoma of scalp s/p resection ROS: Constitutional: Denies weight loss, fever and chills. HEENT: Denies changes in vision and hearing. Respiratory: Improvement in shortness of breath Cardiovascular: Denies chest discomfort or palpitations GI: Denies abdominal pain, nausea, vomiting and diarrhea. : Denies dysuria and urinary frequency. Musculoskeletal: Chronic back pain without change in baseline Neurological: Denies dizziness, headache, vision or hearing problems 05/16/25: Patient was seen at bedside today. Overnight telemetry showed premature atrial contractions. Patient has no new complaints, reports feeling better. Patient is currently on 3 L oxygen; no home oxygen. Continue tapering. We will discontinue doxycycline, cefepime and switch antibiotics to Levaquin p.o.. Downgrade patient to telemetry. PT consulted. Patient would probably require Lasix on discharge. Objective vital signs Vital Sign Date Time Temp Pulse Resp B/P (MAP) Pulse Ox O2 Delivery O2 Flow Rate FiO2 05/16/25 16:00 22 97 Nasal Cannula* 3 32 05/16/25 16:00 97 05/16/25 16:00 98.9 117/62 (80) 98.9 Total Intake and Output 05/15/25 05/15/25 05/16/25 15:00 23:00 07:00 Intake Total 525.0 ml 362.5 ml 340 ml Output Total 1250 ml 900 ml Balance 525.0 ml -887.5 ml -560 ml medications Current Medications Medications Dose Ordered Sig/Ely Route Start Time Stop Time Status Last Admin Dose Admin Nitroglycerin 0.4 mg Q5MINP PRN SL 05/09/25 23:00 Morphine Sulfate 2 mg Q30M PRN IV 05/09/25 23:00 05/12/25 01:27 2 MG Ipratropium [place] 0.5 mg Q4HPRN PRN NEB 05/09/25 23:00 05/12/25 06:57 0.5 MG Enoxaparin Sodium 40 mg DAILY SC 05/10/25 10:00 05/16/25 11:18 40 MG Acetaminophen/ Hydrocodone Bitart 1 tab Q6HPRN PRN PO 05/10/25 15:45 05/16/25 12:27 1 TAB Furosemide 20 mg BIDD IV 05/10/25 18:00 05/16/25 06:08 20 MG Carvedilol 3.125 mg Q12HR PO 05/11/25 10:00 05/16/25 11:18 3.125 MG Enteral Nutritional Formula 240 ml BIDWM PO 05/12/25 18:00 05/15/25 17:14 240 ML Pantoprazole Sodium 40 mg DAILY IV 05/13/25 10:00 05/16/25 11:17 40 MG Gabapentin 300 mg TID PO 05/12/25 22:00 05/16/25 15:19 300 MG Levofloxacin 750 mg Q48H PO 05/18/25 10:00 Examination General: Patient alert and oriented in person, place and time. Patient following commands. HEENT: Well-healing scar on scalp with alopecia, status post basal cell carcinoma removal. Normocephalic, moist mucous membranes Respiratory/pulmonary: Tachypnea. Reduced breath sounds in bilateral lower lung haque, more pronounced in left lower lung haque. Cardiovascular: Tachycardia; Normal heart sounds S1 and S2 with no associated murmurs Abdomen: Abdominal distention with mild shifting dullness. there is no pain to palpation in any of the abdominal quadrants, no palpable masses. Brown stool seen around anal canal. Extremities: There is no peripheral edema present at the lower extremities. Peripheral Pulses: 3+ Radial (R). 3+ Radial (L). 3+ Dorsalis pedis (R). 3+ Dorsalis pedis(L) Skin: Mild redness without breakage of skin in sacral region with wound care dressing. No rashes or pruritus, there is no sacral edema present at this time. Neurological: Intact cranial nerves with no focal neurologic deficits laboratory and microbiology Laboratory Tests 05/16/25 03:50 Test 05/16/25 03:50 Range/Units Serum Glucose 104 74-106 mg/dL Microbiology Date/Time Source Procedure Growth Status 05/12/25 22:40 Voided Urine Urine Culture - Final Complete 05/12/25 11:35 Nose MRSA Screen - Final Complete 05/11/25 08:58 Blood Blood Culture - Final NO GROWTH AFTER 5 DAYS OF INCUBATION. Complete Problem List/Assessment/Plan Problem List/Assessment/Plan Respiratory # Acute hypoxic respiratory failure due to below # Sepsis due to community-acquired pneumonia, Gram-negative/Gram-positive bacteria Chest x-ray diffuse patchy infiltrate in bilateral lung haque, pulmonary vascular congestion, enlarged cardiac silhouette Blood culture negative Previously on high-flow oxygen, discontinued Taper O2 as tolerated; improved O2 requirements. Switched IV doxycycline, cefepime to p.o. Levaquin Incentive spirometry Physical therapy consulted Downgraded to telemetry # Pulmonary hypertension, mild # Interstitial lung disease Continue clinical monitoring Cardiovascular # Acute on chronic diastolic heart failure Continue IV Lasix 20 mg b.i.d. Strict I&O; Output -910 # Hypertension Carvedilol 3.125 # Multifocal atrial tachycardia # PACs Monitor on Telemetry Renal # Urinary incontinence Musculoskeletal # History of chronic back pain Skin/integumentary # Basal cell carcinoma of scalp status post resection Psychiatry # Depression GI prophylaxis: Protonix 40 mg daily DVT prophylaxis: Lovenox 40mg SC daily Critical care time 59 minutes; excluding procedure. Code status discussed greater than 20 minutes: Full CODE STATUS. Goals of care discussed with Shagufta (daughter [phone]) Plan discussed with Dr. Connell Plan discussed with: Patient My Orders My Orders Orders - NEIL VELAZQUEZ RESIDENT Procedure Category Date Status Time 2 Gm Sodium Diet DIET 05/16/25 Transmitted Dinner Levofloxacin Tablet PHA 05/16/25 In Process (Levaquin Tablet) 16:00 Pt Request For Service PT 05/16/25 Logged 15:47 Transfer Orders XFER 05/16/25 Transmitted 15:47 Tile [employer]inder ORDERS 05/16/25 Transmitted 15:47 Levofloxacin Tablet PHA 05/18/25 In Process (Levaquin Tablet) 10:00 Dietary Evaluation Review Comments: Nutrition Recommendation: 1) Consider Ensure Enlive TID if PO intake <50% 2) Monitor PO intake, lab values, weight trend, and I/O Expected Outcomes/Goals: Intake to meet >75% estimated needs FU 3-5 days Date of Service: May 16, 2025 Billing Provider: AARON CONNELL MD Common Visit Codes: [id number] CARE 30-74 MIN NEIL VELAZQUEZ RESIDENT May 16, 2025 17:53 AARON CONNELL MD May 17, 2025 16:03
[2025-05-16] MEDS: levoFLOXacin 250 MG TAB PO ONE (18:00)
[2025-05-17] VITALS (8 sets, daily range): BP systolic 91–136; BP diastolic 58–66; PULSE 93–108; RESP 16–19; TEMP 97.4–99.3; O2SAT 90–97
--- NOTE | 2025-05-17 01:15 | DVHPN2 ---
Progress Note - Dictate Date Seen: May 16, 2025 Medical Necessity Reason Pt with a Central, PICC or Fol: No The following are medically ne: Gage Catheter Reason for gage catheter: Strict I&O Subjective Patient was seen and evaluated in follow up. Patient was downgraded to tele bed. Patient is on 2 LPM NC. WBC 11.1, CO2 32, AST 112, ALT 46, Alk phos 190. Blood cultures had no growth. Telemetry reviewed. vital signs Vital Sign Date Time Temp Pulse Resp B/P (MAP) Pulse Ox O2 Delivery O2 Flow Rate FiO2 05/16/25 22:12 95 99/59 05/16/25 21:00 99.5 17 96 99.5 05/16/25 18:03 Nasal Cannula 2.0 05/16/25 18:03 28 Total Intake and Output 05/16/25 05/16/25 05/17/25 15:00 23:00 07:00 Intake Total 630 ml 720 ml Output Total 825 ml Balance 630 ml -105 ml medications Current Medications Medications Dose Ordered Sig/[place] Route Start Time Stop Time Status Last Admin Dose Admin Nitroglycerin 0.4 mg Q5MINP PRN SL 05/09/25 23:00 Morphine Sulfate 2 mg Q30M PRN IV 05/09/25 23:00 05/12/25 01:27 2 MG Ipratropium [place] 0.5 mg Q4HPRN PRN NEB 05/09/25 23:00 05/12/25 06:57 0.5 MG Enoxaparin Sodium 40 mg DAILY SC 05/10/25 10:00 05/16/25 11:18 40 MG Acetaminophen/ Hydrocodone Bitart 1 tab Q6HPRN PRN PO 05/10/25 15:45 05/16/25 19:57 1 TAB Furosemide 20 mg BIDD IV 05/10/25 18:00 05/16/25 17:33 20 MG Carvedilol 3.125 mg Q12HR PO 05/11/25 10:00 05/16/25 21:12 3.125 MG Enteral Nutritional Formula 240 ml BIDWM PO 05/12/25 18:00 05/16/25 18:00 240 ML Pantoprazole Sodium 40 mg DAILY IV 05/13/25 10:00 05/16/25 11:17 40 MG Gabapentin 300 mg TID PO 05/12/25 22:00 05/16/25 21:19 300 MG Levofloxacin 750 mg Q48H PO 05/18/25 10:00 objective GENERAL: Alert and oriented x 3. No acute distress. Thin appearing. EYES: PERRL, EOMI. Anicteric. HENT: Moist mucous membranes. LUNGS: Coarse bilateral breath sounds CARDIOVASCULAR: Regular rate and rhythm. ABDOMEN: Soft, nontender and nondistended. EXTREMITIES: No edema. NEUROLOGIC: No focal neurological deficits. SKIN: Warm, dry. laboratory and microbiology Laboratory Tests 05/16/25 03:50 Test 05/16/25 03:50 Range/Units Serum Glucose 104 74-106 mg/dL Problem List Sepsis with pneumonia. Acute hypoxic respiratory failure secondary to above. NSTEMI, likely type 2 secondary to above. Multifocal atrial tachycardia, now NSR. Rule out structural heart disease. Hypertension. Chronic lower back pain. Pilmonary HTN. Assessment/Plan Continued all current supportive medical care. Morphine and [place] for pain management. Coreg. DVT and GI prophylactics. Diuretics with Lasix. Antibiotics as ordered. Nitro SL. Additional plan as per the hospital course. Dietary Evaluation Review Comments: Nutrition Recommendation: 1) Consider Ensure Enlive TID if PO intake <50% 2) Monitor PO intake, lab values, weight trend, and I/O Expected Outcomes/Goals: Intake to meet >75% estimated needs FU 3-5 days Plan discussed with: Patient YVES CHACON MD May 17, 2025 01:15
[2025-05-17 06:52] LABS: Albumin 3.4 g/dL (3.2-4.8); Anion Gap 9 (5-15); BUN/Creatinine Ratio 21.5 (10.0-20.0); Blood Urea Nitrogen 17 mg/dL (9-23); Calcium 9.7 mg/dL (8.7-10.4); Glucose 95 mg/dL (74-106); Potassium 4.5 mmol/L (3.5-5.1); Sodium 137 mmol/L (136-145); Total Protein 6.5 g/dL (5.7-8.2)
[2025-05-17 06:53] LABS: Bilirubin, Total 0.4 mg/dL (0.2-1.0)
[2025-05-17 06:58] LABS: Alanine Aminotransferase 42 U/L (7-40); Alkaline Phosphatase 198 U/L (46-116); Carbon Dioxide 34 mmol/L (20-31); Chloride 94 mmol/L (98-107)
[2025-05-17 07:24] LABS: Hematocrit 32.4 % (36.0-46.0); Hemoglobin 10.5 g/dL (12.2-16.2); Mean Corpuscular Hemoglobin 28.9 pg (28.0-32.0); Mean Corpuscular Volume 88.9 fL (80.0-100.0); Nucleated Red Blood Cells % 0.0 %
[2025-05-17] MEDS: PANTOPRAZOLE 40 MG TAB PO ONE (09:18)
--- NOTE | 2025-05-17 19:13 | DVHDSRES ---
Discharge Summary Date of Admission Resident Creating Document: NEIL VELAZQUEZ RESIDENT May 09, 2025 at 22:58 Date of Discharge: May 17, 2025 Labs/Diagnostic Data: Laboratory Results Test 05/17/25 06:03 05/16/25 03:50 05/13/25 07:08 05/12/25 22:40 White Blood Count 11.7 10^3/uL (4.4-10.8) Red Blood Count 3.64 10^6/uL (4.0-5.20) Hemoglobin 10.5 g/dL (12.2-16.2) Hematocrit 32.4 % (36.0-46.0) Mean Corpuscular Volume 88.9 fL (80.0-100.0) Mean Corpuscular Hemoglobin 28.9 pg (28.0-32.0) Mean Corpuscular Hemoglobin Concent 32.5 g/dL (32.0-36.0) Red Cell Distribution Width 15.2 % (11.8-14.3) Platelet Count 356 10^3/uL (140-450) Mean Platelet Volume 7.3 fL (6.9-10.8) Neutrophils (%) (Auto) 78.7 % (37.0-80.0) Lymphocytes (%) (Auto) 12.1 % (10.0-50.0) Monocytes (%) (Auto) 7.3 % (0.0-12.0) Eosinophils (%) (Auto) 1.5 % (0.0-7.0) Basophils (%) (Auto) 0.4 % (0.0-2.0) Neutrophils # (Auto) 9.2 10 ^3/uL (1.6-8.6) Lymphocytes # (Auto) 1.4 10 ^3/uL (0.4-5.4) Monocytes # (Auto) 0.9 10 ^3/uL (0-1.3) Eosinophils # (Auto) 0.2 10 ^3/uL (0-0.8) Basophils # (Auto) 0 10 ^3/uL (0-0.2) Nucleated Red Blood Cells 0.0 % Sodium Level 137 mmol/L (136-145) Potassium Level 4.5 mmol/L (3.5-5.1) Chloride Level 94 mmol/L (98-107) Carbon Dioxide Level 34 mmol/L (20-31) Anion Gap 9 (5-15) Blood Urea Nitrogen 17 mg/dL (9-23) Creatinine 0.79 mg/dL (0.550-1.02) Glomerular Filtration Rate Calc 72 mL/min (>90) BUN/Creatinine Ratio 21.5 (10.0-20.0) Serum Glucose 95 mg/dL (74-106) Calcium Level 9.7 mg/dL (8.7-10.4) Total Bilirubin 0.4 mg/dL (0.2-1.0) Aspartate Amino Transferase (AST) 77 U/L (13-40) Alanine Aminotransferase (ALT) 42 U/L (7-40) Alkaline Phosphatase 198 U/L (46-116) Total Protein 6.5 g/dL (5.7-8.2) Albumin 3.4 g/dL (3.2-4.8) Magnesium Level 1.9 mg/dL (1.6-2.6) Blood Gas Specimen Type Arterial Blood Gas Sample Site Right radial Blood Gas Patient Temperature 37.0 Arterial Blood Date Drawn [id number] Arterial Blood pH 7.476 (7.350-7.450) Arterial Blood Partial Pressure CO2 43.1 mmHg (32.0-45.0) Arterial Blood Partial Pressure O2 80.3 mmHg (83.0-108.0) Arterial Blood HCO3 31.1 mmol/L (21.0-28.0) Arterial Blood Oxygen Saturation 95.8 % (94.0-98.0) Arterial Blood Base Excess 6.8 mmol/L (-2.0-3.0) Arterial Blood Oxyhemoglobin 94.5 % (94.0-98.0) Arterial Blood Carboxyhemoglobin 1.1 % (0.5-1.5) Arterial Blood Methemoglobin 0.3 % (0.0-1.5) Arterial Blood Deoxyhemoglobin 4.1 % (0.0-5.0) Ancelmo Test Yes Blood Gas Total Hemoglobin 12.40 g/dL (12.0-16.0) Blood Gas Liter Flow 50.00 Blood Gas Modality High flow FiO2 % 60.0 Urine Color Yellow (Yellow) Urine Clarity Clear (Clear) Urine pH 6.0 (5.0-9.0) Urine Specific [place] 1.022 (1.001-1.035) Urine Protein Trace (Negative) Urine Ketones Trace (Negative) Urine Blood Negative /uL (Negative) Urine Nitrite Negative (Negative) Urine Bilirubin Negative (Negative) Urine Urobilinogen Normal mg/dL (Negative) Urine Leukocyte Esterase Negative /uL (Negative) Urine RBC 1 /hpf (0 - 4) Urine Microscopic WBC 3 /HPF (0-5) Urine Squamous Epithelial Cells Few /hpf (<5) Urine Bacteria Few /hpf (None Seen) Urine Hyaline Casts Few /lpf (0 - 2) Urine Mucus Few (None Seen) Urine Glucose Normal mg/dL (Normal) Test 05/11/25 06:08 05/11/25 06:05 05/10/25 19:29 05/10/25 01:00 B-Type Natriuretic Peptide 292.82 pg/mL (0-100) Thyroid Stimulating Hormone (TSH) 1.20 uIU/mL (0.55-4.78) Blood Gas Spontaneous Rate 28 Influenza Type A Antigen Negative (Negative) Influenza Type B Antigen Negative (Negative) SARS-CoV-2 Antigen (Rapid) Negative (NEGATIVE) Test 05/10/25 00:00 05/09/25 23:57 05/09/25 21:16 Troponin I High Sensitivity 95 ng/L (</=34) Lactic Acid Level 1.5 mmol/L (0.4-2.0) D-Dimer, Quantitative 3.03 mg/L FEU (0.0-0.49) Other Laboratory Tests 05/17/25 06:03 Brief Hx & Hospital Course: Brief history on arrival: This is 89-year-old female with past medical history of hypertension, chronic back pain, depression, urinary incontinence, recurrent UTI presented to the ED with a chief complaint of progressive shortness of breath for last 2 days prior to this admission. According to the family the patient was having shortness of breath for last 2 days getting worse and today she was desaturating at 60% in home that prompted the visit to the ER. In the ED the patient was on non- rebreather 15 L that improved the oxygen saturation to 99%. She denied fever, chills, cough with the phlegm, recent positive sick contact, recent traveling, dysuria, hematuria or any altered bowel habit. Hospital course: Patient's inial assessment revealed low grade fever, tachycardia, tachypnea. Initial labs showed leukocytosis. Chest x-ray showed diffuse patchy infiltrate in bilateral lung haque, pulmonary vascular congestion, enlarged cardiac silhouette. She was admitted along the lines of sepsis and acute hypoxic respiratory failure due to pneumonia with acute diastolic heart failure. EKG showed multifocal atrial tachycardia. Started on supportive management with supplemental oxygen with Oxymizer, pain management. Continuous telemetry monitoring showed premature atrial contractions. She was started on IV doxycycline, cefepime. Patient was started on IV Lasix with strict I&O monitoring. As the patient's initial condition stabilized, she was transferred to telemetry unit and IV antibiotics were switched to oral Levaquin. Blood & urine cultures showed no growth. Patient will be transferred to Acute Care Facility for further management. Conditions managed during stay: Acute hypoxic respiratory failure due to below Sepsis due to community-acquired pneumonia, Gram-negative/Gram-positive bacteria Pulmonary hypertension, mild Interstitial lung disease Acute on chronic diastolic heart failure (HFpEF with EF 60-65%) NSTEMI, likely type 2 secondary to above Hypertension Multifocal atrial tachycardia Premature atrial contractions Urinary incontinence History of chronic back pain Basal cell carcinoma of scalp status post resection Depression Plan: Discharge to Acute Care Facility for further management when the transfer is arranged. Consults/Reason for consult Cardiology on board, recommended transthoracic echocardiogram to rule out structural heart disease. Initiate rate control with Cardizem IV. Close EKG monitoring. Pulmonology on board, recommended supplemental oxygen to keep O2 sats above 92%. Bronchodilators PRN advised. Operations or Procedures 05/16/25 CHEST RADIOGRAPH Indication: PNA Technique: Single frontal view of the chest was obtained COMPARISON: XY CHEST PORTABLE on DOS: 05/15/25, XY CHEST PORTABLE on DOS: 05/13/25, XY CHEST PORTABLE on DOS: 05/11/25, XY CHEST PORTABLE on DOS: 05/09/25 FINDINGS: Lines and Tubes: None Lungs: Increased diffuse multifocal airspace disease. Pleura: Small left pleural effusion. pneumothorax. Cardiomediastinal contours: Cardiomegaly. Bones: Scoliosis. Degenerative changes of the spine. IMPRESSION: Increased diffuse multifocal airspace disease. 05/09/25 CHEST RADIOGRAPH Indication: PNA Technique: Single frontal view of the chest was obtained COMPARISON: XY CHEST PORTABLE on DOS: 05/15/25, XY CHEST PORTABLE on DOS: 05/13/25, XY CHEST PORTABLE on DOS: 05/11/25, XY CHEST PORTABLE on DOS: 05/09/25 FINDINGS: Lines and Tubes: None Lungs: Increased diffuse multifocal airspace disease. Pleura: Small left pleural effusion. pneumothorax. Cardiomediastinal contours: Cardiomegaly. Bones: Scoliosis. Degenerative changes of the spine. IMPRESSION: Increased diffuse multifocal airspace disease. CTA Chest with intravenous contrast INDICATION: Rule out PE COMPARISON: XY CHEST PORTABLE on DOS: 05/09/25 TECHNIQUE: Multidetector spiral CTA of the chest was performed of the chest with intravenous contrast. PULMONARY ANGIOGRAPHY PROTOCOL was utilized using a bolus- tracking technique centered on the main pulmonary artery. Axial, coronal and sagittal multiplanar and MIP reformats were performed. Radiation Dose : 1. Chest: CTDI volume is 5.92 mGy. Dose-length product is 521.34 mGy*cm The dose indicators for CT are the volume Computed Tomography (CT) Dose Index (CTDIvol) and the Dose Length Product (DLP), and are measured in units of mGy and mGy-cm, respectively. These indicators are not patient dose, but values generated from the CT scanner acquisition factors. The report includes radiation exposure data for exposures received during this examination. Findings: Pulmonary artery: No pulmonary embolism. Lower neck: Normal thyroid. Lungs: Moderate left and small right pleural effusions with adjacent atelectasis. Multifocal predominantly ground-glass bilateral pulmonary infiltrate with diffuse septal thickening. No evidence of pneumothorax. Heart/Vascular Structures: Normal heart size. No pericardial effusion. Atherosclerotic vascular calcifications. Lymph Nodes: No adenopathy Musculoskeletal: No acute osseous abnormality. Soft tissues: Normal. Upper abdomen: Limited portions of the upper abdomen are unremarkable. IMPRESSION: 1. No pulmonary embolism. 2. Moderate left and small right pleural effusions with adjacent atelectasis. 3. Multifocal predominantly ground-glass bilateral pulmonary infiltrate with diffuse septal thickening. EXAM: Two-dimensional and M-mode echocardiogram with Doppler and color Doppler. Blood Pressure: 118/63 mmHg INDICATION Dyspnea ACute hypoxic respiratory failure RISK FACTORS Height: 63, Weight: 110 DIMENSIONS LVDd 3.6 (3.8-5.7cm) LA (2D) 3.3 (1.9-4.0cm) Aortic Root 3.2 (2.0- 3.7cm) LVDs 2.6 (2.5-4.0cm) LA (MM) (1.9-4.0cm) Aortic Cusp Exc 1.5 (1.5- 2.0cm) EF (%) 55.0 (55-70%) Rt. Atrium 4.2 (1.9-4.0cm) Asc. Aorta cm Mitral Valve Mitral Mitral Stenosis E wave 0.71m/s MV Mean GR. mmHg A wave 1.26m/s MV Peak GR. mmHg E/A ratio 0.6 2D MVA cm2 DECEL Time 244ms PRESS 1/2 Time ms Aortic Valve Aortic Valve Aortic Stenosis V1 1.04m/s AO Mean GR. 4mmHg V2 1.39m/s AO Peak GR. 8mmHg LVOT Diameter 1.7 (1.8-2.4cm) Doppler LILLI 1.70cm2 Pulmonic Valve V2 0.76m/s Tricuspid Valve TR Velocity 2.58m/s RVSP 32mmHg Other Information Quality : Technically Limited Rhythm : Technically limited study due to body habitus and patient rhythm and high heart rate. Conclusion LVEF is normal at 60-65%, mild LVH Right ventricle is mildly dilated, moderately reduced function Mild tricuspid regurgitation mild pulmonary hypertension Condition at Discharge: Higher Level of Care Final Diagnosis/Problems List Acute hypoxic respiratory failure due to below Sepsis due to community-acquired pneumonia, Gram-negative/Gram-positive bacteria Pulmonary hypertension, mild Interstitial lung disease Acute on chronic diastolic heart failure (HFpEF with EF 60-65%) Hypertension Multifocal atrial tachycardia Premature atrial contractions NSTEMI, likely type 2 secondary to above Urinary incontinence History of chronic back pain Basal cell carcinoma of scalp status post resection Depression Discharge Disposition: Acute Care Facility Discharge Instruct/Medications Diet: Cardiac 2g Na,low cholest Activity: No Restrictions, As Tolerated Scheduled Amlodipine Besylate (Amlodipine Besylate), 1 TAB PO DAILY, (Reported) Aripiprazole (Abilify Mycite Maintenanc), 1 TAB PO DAILY, (Reported) Desvenlafaxine Succinate (Desvenlafaxine ER), 1 TAB PO DAILY, (Reported) Gabapentin (Gabapentin), 1 CAP PO TID, (Reported) Pantoprazole Sodium Sesquihydr (Pantoprazole Sodium), 20 MG PO BID, (Reported) Scheduled PRN Hydrocodone-Acetaminophen (Hydrocodone Bitartrate/AC 10-325 mg), 1 TAB PO QID PRN for PAIN, (Reported) Discharge Statement: "Patient was advised to return to the ER or call 911 if any headaches, dizziness, shortness of breath, chest pain, abdominal pain, bleeding, fevers, or worsening of medical condition. Patient was counseled about treatment plan, medications, possible side effects, patientverbalized understanding. All questions were answered to the best of my ability. This discharge took greater then 30 minutes in planning, reviewing documentation, counseling the patient, and discussing with other team members." ASSESSMENT ASSESSMENT Assessment # Acute hypoxic respiratory failure due to below # Sepsis due to community-acquired pneumonia, Gram-negative/Gram-positive bacteria Chest x-ray diffuse patchy infiltrate in bilateral lung haque, pulmonary vascular congestion, enlarged cardiac silhouette Blood culture negative Previously on high-flow oxygen, discontinued Taper O2 as tolerated; improved O2 requirements. Switched IV doxycycline, cefepime to p.o. Levaquin Incentive spirometry Physical therapy consulted Downgraded to telemetry # Pulmonary hypertension, mild # Interstitial lung disease Continue clinical monitoring Cardiovascular # Acute on chronic diastolic heart failure Continue IV Lasix 20 mg b.i.d. Strict I&O; Output -910 # Hypertension Carvedilol 3.125 # Multifocal atrial tachycardia # PACs Monitor on Telemetry Renal # Urinary incontinence Musculoskeletal # History of chronic back pain Skin/integumentary # Basal cell carcinoma of scalp status post resection Psychiatry # Depression Visit Coding STANDARD RES Billing Provider: AARON CONNELL MD Date of Service if different f: May 17, 2025 NEIL VELAZQUEZ RESIDENT May 17, 2025 19:13
--- NOTE | 2025-05-17 23:23 | DVHPN2 ---
Progress Note - Dictate Date Seen: May 17, 2025 Medical Necessity Reason Pt with a Central, PICC or Fol: No The following are medically ne: Gage Catheter Reason for gage catheter: Strict I&O Subjective Patient was seen and evaluated in follow up. Patient complains of generalized pain. CM is arranging transfer to [place]. WBC 11.7, CO2 34, AST 77, ALT 42. Telemetry reviewed. vital signs Vital Sign Date Time Temp Pulse Resp B/P (MAP) Pulse Ox O2 Delivery O2 Flow Rate FiO2 05/17/25 12:40 97.7 93 18 108/66 (80) 95 97.7 05/17/25 09:30 Nasal Cannula* 2 28 Total Intake and Output 05/16/25 05/16/25 05/17/25 15:00 23:00 07:00 Intake Total 630 ml 720 ml 400 ml Output Total 825 ml 750 ml Balance 630 ml -105 ml -350 ml medications Current Medications Medications Dose Ordered Sig/[place] Route Start Time Stop Time Status Last Admin Dose Admin Nitroglycerin 0.4 mg Q5MINP PRN SL 05/09/25 23:00 Morphine Sulfate 2 mg Q30M PRN IV 05/09/25 23:00 05/12/25 01:27 2 MG Enoxaparin Sodium 40 mg DAILY SC 05/10/25 10:00 05/17/25 09:17 40 MG Acetaminophen/ Hydrocodone Bitart 1 tab Q6HPRN PRN PO 05/10/25 15:45 05/17/25 09:21 1 TAB Furosemide 20 mg BIDD IV 05/10/25 18:00 05/17/25 05:36 20 MG Carvedilol 3.125 mg Q12HR PO 05/11/25 10:00 05/17/25 09:18 3.125 MG Enteral Nutritional Formula 240 ml BIDWM PO 05/12/25 18:00 05/17/25 08:00 240 ML Gabapentin 300 mg TID PO 05/12/25 22:00 05/17/25 13:16 300 MG Levofloxacin 750 mg Q48H PO 05/18/25 10:00 Pantoprazole Sodium 40 mg DAILY@0600 PO 05/18/25 06:00 objective GENERAL: Alert and oriented x 3. No acute distress. Thin appearing. EYES: PERRL, EOMI. Anicteric. HENT: Moist mucous membranes. LUNGS: Coarse bilateral breath sounds CARDIOVASCULAR: Regular rate and rhythm. ABDOMEN: Soft, nontender and nondistended. EXTREMITIES: No edema. NEUROLOGIC: No focal neurological deficits. SKIN: Warm, dry. laboratory and microbiology Laboratory Tests 05/17/25 06:03 Test 05/17/25 06:03 Range/Units Serum Glucose 95 74-106 mg/dL Problem List Sepsis with pneumonia. Acute hypoxic respiratory failure secondary to above. NSTEMI, likely type 2 secondary to above. Multifocal atrial tachycardia, now NSR. Rule out structural heart disease. Hypertension. Chronic lower back pain. Pilmonary HTN. Assessment/Plan Continued all current supportive medical care. Morphine and [place] for pain management. Coreg. DVT and GI prophylactics. Diuretics with Lasix. Antibiotics as ordered. Nitro SL. Additional plan as per the hospital course. A total of 25 minutes was spent reviewing the patient record, examining the patient, making a diagnostic and therapeutic plan, discussing this plan with medical personnel, following up on diagnostic studies and following the patient for clinical stability excluding any and all procedures. At least 50% of this time was spent in direct, [id number] contact. Dietary Evaluation Review Comments: Nutrition Recommendation: 1) Consider Ensure Enlive TID if PO intake <50% 2) Monitor PO intake, lab values, weight trend, and I/O Expected Outcomes/Goals: Intake to meet >75% estimated needs FU 3-5 days Plan discussed with: Patient YVES CHACON MD May 17, 2025 14:01
[2025-05-18] MEDS ORDERED: PANTOPRAZOLE 40 MG TAB PO SCH (06:00)
[2025-05-18] MEDS ORDERED: levoFLOXacin 250 MG TAB PO SCH (10:00)
== END 2025-05-17 21:50 | disposition short-term general hospital (02) | DRG 871 ==
LOC: ER 20:34 → EDBD 20:34 → OVERFLOW 22:58 → ICU WEST 05-12 10:50 → TELE-WESTW 05-16 18:31
PROVIDERS: ADMIT Internal Medicine; ATTEND Internal Medicine
PROC: 5A0935A Assistance with Respiratory Ventilation, Less than 24 Consecutive Hours, High Flow/Velocity Cannula (ICD-10-PCS; principal; 2025-05-11)
PROC: 5A0935A Assistance with Respiratory Ventilation, Less than 24 Consecutive Hours, High Flow/Velocity Cannula (ICD-10-PCS; 2025-05-12)
PROC: 5A0935A Assistance with Respiratory Ventilation, Less than 24 Consecutive Hours, High Flow/Velocity Cannula (ICD-10-PCS; 2025-05-13)
PROC: 05HA33Z Insertion of Infusion Device into Left Brachial Vein, Percutaneous Approach (ICD-10-PCS; 2025-05-13)
PROC: B54NZZA Ultrasonography of Left Upper Extremity Veins, Guidance (ICD-10-PCS; 2025-05-13)
DX: A41.59 Other Gram-negative sepsis (principal); I21.A1 Myocardial infarction type 2; J96.01 Acute respiratory failure with hypoxia; J15.69 Pneumonia due to other Gram-negative bacteria; J15.9 Unspecified bacterial pneumonia; I50.33 Acute on chronic diastolic (congestive) heart failure; I27.20 Pulmonary hypertension, unspecified; I11.0 Hypertensive heart disease with heart failure; F32.A Depression, unspecified; I47.19 Other supraventricular tachycardia; J84.9 Interstitial pulmonary disease, unspecified; Z20.822 Contact with and (suspected) exposure to COVID-19; I49.1 Atrial premature depolarization; G89.29 Other chronic pain; F41.9 Anxiety disorder, unspecified; R32 Unspecified urinary incontinence; Z99.81 Dependence on supplemental oxygen; Z87.440 Personal history of urinary (tract) infections; Z79.899 Other long term (current) drug therapy
CPT/HCPCS: 36415; 36600; 71045; 71275; 80048; 80053; 81001; 82805; 83605; 83735; 83880; 84443; 84484; 85025; 85379; 87040; 87081; 87086; 87426; 87804; 93005; 93306; 94640; 97163; 99291; G0378; J2470